=== PATIENT | female | born 1950 | race Hispanic/Latino ===

== ENCOUNTER 2018-01-18 13:49 | Emergency (ER) | payer MEDICARE, OTHER ==
[2018-01-18 14:27] LABS: Absolute Lymphocytes (CBC) 0.6 K/uL (0.7-4.9); Absolute Monocytes 0.3 K/uL (0.1-1.3); Absolute Neutrophil 8.3 K/uL (1.8-8.0); Basophils % 0.2 % (0-1.3); Eosinophils % 0.4 % (0-4.4); Hematocrit 40.2 % (36.0-45.0); Lymphocytes % 6.3 % (15.3-44.8); MCH 31.8 pg (27.0-35.0); MCV 94.2 fL (80-100); MPV 7.8 fL (7.6-11.3); Monocytes % 2.9 % (3.3-12.3); RBC Red Blood Cell Count 4.27 M/uL (3.86-4.86)
[2018-01-18 14:47] LABS: Protime INR 0.97
[2018-01-18 15:00] LABS: ALT/SGPT 17 U/L (12-78); AST/SGOT 20 U/L (15-37); Albumin 3.7 g/dL (3.4-5.0); Alkaline Phosphatase 125 U/L (45-117); BUN Blood Urea Nitrogen 31 mg/dL (7-18); Bicarbonate 27 mmol/L (21-32); Bilirubin Direct 0.2 mg/dL (0-0.2); Bilirubin Total 0.7 mg/dL (0.2-1.0); CKMB Creatine Kinase MB < 1.0 ng/mL (0.3-3.6); Creatine Phosphokinase 76 U/L (26-192); Glucose Level 108 mg/dL (74-106); Magnesium 1.8 mg/dL (1.8-2.4); NT PRO-BNP 101 pg/mL (<125); Potassium 3.7 mmol/L (3.5-5.1); Protein, Total 7.6 g/dL (6.4-8.2); Sodium Level 135 mmol/L (136-145)
--- NOTE | 2018-01-18 15:03 | RAD REPORT ---
EXAM DESCRIPTION: RAD - Chest Single View - 01/18/2018 2:51 pm CLINICAL HISTORY: CHEST PAIN<Reason For Exam>CHEST PAIN COMPARISON: Chest Single View dated 08/01/2017; Chest Single View dated 10/08/2015; CHEST SINGLE VIEW dated 01/17/2015; CHEST SINGLE VIEW dated 09/13/2014<Comparisons TECHNIQUE: AP portable chest image was obtained 1442 hours . FINDINGS: Lungs are clear. Lung markings are similar to comparison. Heart size is upper normal and s table. No vascular engorgement. No measurable pleural effusion and no pneumothorax. No gross bony abn ormality seen. No acute aortic findings suspected. IMPRESSION: No acute cardiopulmonary process. No significant interval change.
[2018-01-18] MEDS ORDERED: NA CHLORIDE 0.9% 1,000 ML ONE ×2 (15:20→17:23)
[2018-01-18 16:43] LABS: Urine Blood 1+ (NEG); Urine Glucose NEGATIVE (NEG); Urine Protein NEGATIVE (NEG)
[2018-01-18] MEDS ORDERED: ONDANSETRON 4 MG/2 ML VIAL ONE (17:31)
--- NOTE | 2018-01-18 18:08 | EDPHYS ---
Physician Documentation [facility] Name: Guillermina Bowling Age: 67 yrs Sex: Female : 1950 Arrival Date: 01/18/2018 Time: 13:51 Bed 17 Private MD: Man Hylton E ED Physician Rick Diaz HPI: 01/18 15:00 This 67 yrs old Female presents to ER via Ambulatory with complaints of Chest pm1 Pain > 30 y/o. 15:00 The patient or guardian reports chest pain that is located primarily in the mid-sternal pm1 area. Onset: 2 day(s) ago. The pain does not radiate. Associated signs and symptoms: Pertinent positives: nausea, Pertinent negatives: abdominal pain, cough, diaphoresis, dizziness, headache, palpitations, shortness of breath, vomiting. The chest pain is described as sharp. Duration: The patient or guardian reports multiple episodes, the episodes last approximately 1 second(s). Modifying factors: The symptoms are alleviated by nothing. the symptoms are aggravated by nothing. Severity of pain: in the emergency department the pain has resolved. The patient has experienced similar episodes in the past, a few times. The patient has not recently seen a physician. Patient has not been eating or drinking well for the past two days. Historical: - Allergies: 14:37 No Known Allergies; iw - Home Meds: 14:01 B Complex Oral daily [Active]; Humira Pen 40 mg/0.8 mL subcutaneous pnkt Q 2 WEEKS dm5 [Active]; Iron CR Oral daily [Active]; lisinopril 20 mg Oral tab 1 tab once daily [Active]; metoprolol tartrate 50 mg Oral tab 1 tab 2 times per day [Active]; Pentasa 500 mg Oral cpER 3 caps twice a day [Active]; Vitamin D Oral daily [Active]; Zyrtec 10 mg Oral tab 1 tab once daily [Active]; - PMHx: 14:01 Anemia; Crohn's; Fibromyalgia; Hypertension; Myocardial infarction; Rheumatoid dm5 Arthritis; - PSHx: 14:01 Cholecystectomy; ; Left herson socket; Hysterectomy; Bowel resection; dm5 - Immunization history:: Adult Immunizations up to date. - Social history:: Smoking status: Patient/guardian denies using tobacco. - Ebola Screening: : No symptoms or risks identified at this time. ROS: 15:00 Constitutional: Negative for fever, chills, and weight loss, Eyes: Negative for injury, pm1 pain, redness, and discharge, ENT: Negative for injury, pain, and discharge, Neck: Negative for injury, pain, and swelling, Respiratory: Negative for shortness of breath, cough, wheezing, and pleuritic chest pain, Back: Negative for injury and pain, : Negative for injury, bleeding, discharge, and swelling, MS/Extremity: Negative for injury and deformity, Skin: Negative for injury, rash, and discoloration, Neuro: Negative for headache, weakness, numbness, tingling, and seizure. 15:00 Cardiovascular: Positive for chest pain, Negative for edema, orthopnea, palpitations. 15:00 Abdomen/GI: Positive for nausea, Negative for abdominal pain, vomiting, diarrhea. Exam: 15:00 Constitutional: This is a well developed, well nourished patient who is awake, alert, pm1 and in no acute distress. Head/Face: Normocephalic, atraumatic. Eyes: Pupils equal round and reactive to light, extra-ocular motions intact. Lids and lashes normal. Conjunctiva and sclera are non-icteric and not injected. Cornea within normal limits. Periorbital areas with no swelling, redness, or edema. ENT: Nares patent. No nasal discharge, no septal abnormalities noted. Tympanic membranes are normal and external auditory canals are clear. Oropharynx with no redness, swelling, or masses, exudates, or evidence of obstruction, uvula midline. Mucous membranes moist. Neck: Trachea midline, no thyromegaly or masses palpated, and no cervical lymphadenopathy. Supple, full range of motion without nuchal rigidity, or vertebral point tenderness. No Meningismus. Chest/axilla: Normal chest wall appearance and motion. Nontender with no deformity. No lesions are appreciated. Cardiovascular: Regular rate and rhythm with a normal S1 and S2. No gallops, murmurs, or rubs. Normal PMI, no JVD. No pulse deficits. Respiratory: Lungs have equal breath sounds bilaterally, clear to auscultation and percussion. No rales, rhonchi or wheezes noted. No increased work of breathing, no retractions or nasal flaring. Abdomen/GI: Soft, non-tender, with normal bowel sounds. No distension or tympany. No guarding or rebound. No evidence of tenderness throughout. Back: No spinal tenderness. No costovertebral tenderness. Full range of motion. Skin: Warm, dry with normal turgor. Normal color with no rashes, no lesions, and no evidence of cellulitis. MS/ Extremity: Pulses equal, no cyanosis. Neurovascular intact. Full, normal range of motion. 15:00 Neuro: Orientation: is normal, Motor: is normal, moves all fours. Vital Signs: 14:06 BP 117 / 89; Pulse 78; Resp 16; Temp 98.3(O); Pulse Ox 94% on R/A; Pain 5/10; em1 15:13 BP 92 / 59; Pulse 71; Resp 16; Pulse Ox 98% on R/A; Pain 0/10; iw 16:03 BP 103 / 66; Pulse 76; Resp 16; Pulse Ox 100% on R/A; iw 16:34 BP 105 / 62; Pulse 72; Resp 16; Pulse Ox 100% on R/A; Pain 0/10; iw 17:30 BP 99 / 63; Pulse 72; Resp 16; Pulse Ox 98% on R/A; ph 18:50 BP 97 / 56 LA Supine; Pulse 75; ph 18:50 BP 97 / 62 RA Supine; Pulse 75; ph 19:05 BP 103 / 65 Supine; Pulse 74; lp1 19:10 BP 103 / 63 Sitting; Pulse 76; lp1 19:15 BP 108 / 84 Standing; Pulse 81; lp1 MDM: 14:09 Patient medically screened. pm1 18:06 Data reviewed: vital signs. Data interpreted: Pulse oximetry: on room air is 100 %. pm1 Interpretation: normal. Counseling: I had a detailed discussion with the patient and/or guardian regarding: the historical points, exam findings, and any diagnostic results supporting the discharge/admit diagnosis, lab results, radiology results, the need for outpatient follow up, to return to the emergency department if symptoms worsen or persist or if there are any questions or concerns that arise at home. 19:15 ED course: Patient feels better after infusion of 2 L NS. Orthostatic blood pressures pm1 taken and she is not orthostatic. Instructed patient to continue rehydration at home. 01/18 14:01 Order name: Basic Metabolic Panel; Complete Time: 15:00 pm1 29 14:01 Order name: CBC with Diff; Complete Time: 14:47 pm01/18 14:01 Order name: Ckmb; Complete Time: 15:00 pm01/18 14:01 Order name: CPK; Complete Time: 15:00 pm01/18 14:01 Order name: LFT's; Complete Time: 15:00 pm01/18 14:01 Order name: Magnesium; Complete Time: 15:00 pm01/18 14:01 Order name: NT PRO-BNP; Complete Time: 15:00 pm01/18 14:01 Order name: PT-INR; Complete Time: 14:58 pm01/18 14:01 Order name: Ptt, Activated; Complete Time: 14:58 pm01/18 14:01 Order name: Troponin (emerg Dept Use Only); Complete Time: 16:10 pm01/18 14:01 Order name: XRAY Chest (1 view); Complete Time: 15:05 pm01/18 16:39 Order name: Urine Dipstick--Ancillary (enter results); Complete Time: 16:49 bd 01/18 14:01 Order name: EKG; Complete Time: 14:02 pm01/18 14:01 Order name: Cardiac monitoring; Complete Time: 14:19 pm01/18 14:01 Order name: EKG - Nurse/Tech; Complete Time: 14:19 pm01/18 14:01 Order name: IV Saline Lock; Complete Time: 14:19 pm01/18 14:01 Order name: Labs collected and sent; Complete Time: 14:19 pm01/18 14:01 Order name: O2 Per Protocol; Complete Time: 14:19 pm01/18 14:01 Order name: O2 Sat Monitoring; Complete Time: 14:19 pm01/18 14:01 Order name: Urine Dipstick-Ancillary (obtain specimen); Complete Time: 16:23 pm1 Administered Medications: 15:29 Drug: NS 0.9% 1000 ml Route: IV; Rate: 1000 ml; Site: right antecubital; iw 16:30 Follow up: IV Status: Completed infusion iw 15:38 Not Given (Patient Refused): Zofran 4 mg IVP once; over 2 minutes iw 17:29 Drug: NS 0.9% 1000 ml Route: IV; Rate: 1000 ml; Site: right antecubital; iw 17:30 Drug: Zofran 4 mg Route: IVP; Site: right antecubital; iw 17:31 Follow up: Response: No adverse reaction iw Disposition: 01/19 08:09 Co-signature as Attending Physician, Rick Diaz MD. rn Disposition: 01/18/18 18:07 Discharged to Home. Impression: Chest pain, unspecified, Dehydration. - Condition is Stable. - Discharge Instructions: Nonspecific Chest Pain, Dehydration, Adult, Rehydration, Adult. - Prescriptions for Zofran 4 mg Oral Tablet - take 1 tablet by ORAL route every 12 hours As needed; 20 tablet. - Medication Reconciliation Form, Thank You Letter, Antibiotic Education, Prescription Opioid Use form. - Follow up: Emergency Department; When: As needed; Reason: Worsening of condition. Follow up: Private Physician; When: 2 - 3 days; Reason: Recheck today's complaints, Continuance of care, Re-evaluation by your physician. - Problem is new. - Symptoms have improved. Signatures: Dispatcher [employer] EDMandy Broderick RN RN dm5 Latoya Love RN RN iw Nieto, Roman, MD MD rn Smirch, Shelby, RN RN ss Manda Noriega RN RN lp1 Diego Sullivan NP LANDSCAPE PHOTOGRAPHER pm1 Corrections: (The following items were deleted from the chart) 01/18 19:26 18:07 01/18/2018 18:07 Discharged to Home. Impression: Chest pain, unspecified; ss Dehydration. Condition is Stable. Forms are Medication Reconciliation Form, Thank You Letter, Antibiotic Education, Prescription Opioid Use. Follow up: Emergency Department; When: As needed; Reason: Worsening of condition. Follow up: Private Physician; When: 2 - 3 days; Reason: Recheck today's complaints, Continuance of care, Re-evaluation by your physician. Problem is new. Symptoms have improved. pm1
--- NOTE | 2018-01-18 18:08 | ER ---
Nurse's Notes [facility] Name: Guillermina Bowling Age: 67 yrs Sex: Female : 1950 Arrival Date: 01/18/2018 Time: 13:51 Bed 17 Private MD: Man Hylton E Diagnosis: Chest pain, unspecified;Dehydration Presentation: 01/18 13:59 Presenting complaint: Patient states: woke up this morning not feeling well around dm5 1000. Pt states she has been nauseated and vomiting and was sweating. Pt states she has had chest pain for 2 days but worse today. has had similar pain in the past. Transition of care: patient was not received from another setting of care. Onset of symptoms was January 18, 2018. Risk Assessment: Do you want to hurt yourself or someone else? Patient reports no desire to harm self or others. Initial Sepsis Screen: Does the patient meet any 2 criteria? No. Patient's initial sepsis screen is negative. Does the patient have a suspected source of infection? No. Patient's initial sepsis screen is negative. Care prior to arrival: None. 13:59 Method Of Arrival: Ambulatory dm5 13:59 Acuity: JASWINDER 3 dm5 Triage Assessment: 14:01 General: Appears in no apparent distress. uncomfortable, Behavior is calm, cooperative. dm5 Pain: Complains of pain in chest. Neuro: Level of Consciousness is awake, alert, obeys commands, Oriented to person, place, time, situation. Cardiovascular: Reports chest pain, diaphoresis, nausea, vomiting, Capillary refill < 3 seconds Patient's skin is warm and dry. Respiratory: Airway is patent Respiratory effort is even, unlabored, relaxed, Respiratory pattern is regular, symmetrical. GI: Reports nausea, vomiting. Derm: Skin is pink, warm \T\ dry. Historical: - Allergies: 14:37 No Known Allergies; iw - Home Meds: 14:01 B Complex Oral daily [Active]; Humira Pen 40 mg/0.8 mL subcutaneous pnkt Q 2 WEEKS dm5 [Active]; Iron CR Oral daily [Active]; lisinopril 20 mg Oral tab 1 tab once daily [Active]; metoprolol tartrate 50 mg Oral tab 1 tab 2 times per day [Active]; Pentasa 500 mg Oral cpER 3 caps twice a day [Active]; Vitamin D Oral daily [Active]; Zyrtec 10 mg Oral tab 1 tab once daily [Active]; - PMHx: 14:01 Anemia; Crohn's; Fibromyalgia; Hypertension; Myocardial infarction; Rheumatoid dm5 Arthritis; - PSHx: 14:01 Cholecystectomy; ; Left herson socket; Hysterectomy; Bowel resection; dm5 - Immunization history:: Adult Immunizations up to date. - Social history:: Smoking status: Patient/guardian denies using tobacco. - Ebola Screening: : No symptoms or risks identified at this time. Screenin:14 Abuse screen: Denies threats or abuse. Denies injuries from another. Nutritional iw screening: No deficits noted. Tuberculosis screening: No symptoms or risk factors identified. Fall Risk IV access (20 points). Assessment: 15:13 Reassessment: Patient appears in no apparent distress at this time. Patient and/or iw family updated on plan of care and expected duration. Pain level reassessed. Patient is alert, oriented x 3, equal unlabored respirations, skin warm/dry/pink. Patient denies pain at this time. Patient states feeling better. 16:34 Reassessment: Patient appears in no apparent distress at this time. Patient and/or iw family updated on plan of care and expected duration. Pain level reassessed. Patient is alert, oriented x 3, equal unlabored respirations, skin warm/dry/pink. pt denies pain at this time but did have one episode of chest tightness and nausea that lasted a few seconds, has completely resolved now. 17:32 Reassessment: Patient appears in no apparent distress at this time. Patient and/or iw family updated on plan of care and expected duration. Pain level reassessed. Patient is alert, oriented x 3, equal unlabored respirations, skin warm/dry/pink. Pain: Denies pain. Pain does not radiate. Pain began. 18:30 Reassessment: Patient appears in no apparent distress at this time. Patient and/or ph family updated on plan of care and expected duration. Pain level reassessed. Patient is alert, oriented x 3, equal unlabored respirations, skin warm/dry/pink. Pt ambulated to restroom, reports dizziness upon standing, BP remains low (90s/50s), d/c pending improvement in BP. Vital Signs: 14:06 BP 117 / 89; Pulse 78; Resp 16; Temp 98.3(O); Pulse Ox 94% on R/A; Pain 5/10; em1 15:13 BP 92 / 59; Pulse 71; Resp 16; Pulse Ox 98% on R/A; Pain 0/10; iw 16:03 BP 103 / 66; Pulse 76; Resp 16; Pulse Ox 100% on R/A; iw 16:34 BP 105 / 62; Pulse 72; Resp 16; Pulse Ox 100% on R/A; Pain 0/10; iw 17:30 BP 99 / 63; Pulse 72; Resp 16; Pulse Ox 98% on R/A; ph 18:50 BP 97 / 56 LA Supine; Pulse 75; ph 18:50 BP 97 / 62 RA Supine; Pulse 75; ph 19:05 BP 103 / 65 Supine; Pulse 74; lp1 19:10 BP 103 / 63 Sitting; Pulse 76; lp1 19:15 BP 108 / 84 Standing; Pulse 81; lp1 ED Course: 13:51 Patient arrived in ED. sb2 13:51 Man Hylton MD is Private Physician. sb2 13:59 Mandy Salas, RN is Primary Nurse. dm5 14:00 Triage completed. dm5 14:01 Diego Sullivan NP is PHCP. pm1 14:01 Rick Diaz MD is Attending Physician. pm1 14:01 Arm band placed on right wrist. EKG done per protocol. dm5 14:30 EKG done, by biodiesel production technician. reviewed by Diego Sullivan NP. dt2 14:39 Primary Nurse role handed off by Mandy Salas, RN iw 14:39 Latoya Love, MARLON is Primary Nurse. iw 14:47 X-ray completed. Portable x-ray completed in exam room. Patient tolerated procedure jb2 well. 14:51 XRAY Chest (1 view) In Process Unspecified. EDMS 16:34 No provider procedures requiring assistance completed. Patient maintains SpO2 iw saturation greater than 95% on room air. 19:10 Patient has correct armband on for positive identification. tar chaser on. Pulse lp1 ox on. NIBP on. 19:26 IV discontinued, intact, bleeding controlled, No redness/swelling at site. Pressure ss dressing applied. Administered Medications: 15:29 Drug: NS 0.9% 1000 ml Route: IV; Rate: 1000 ml; Site: right antecubital; iw 16:30 Follow up: IV Status: Completed infusion iw 15:38 Not Given (Patient Refused): Zofran 4 mg IVP once; over 2 minutes iw 17:29 Drug: NS 0.9% 1000 ml Route: IV; Rate: 1000 ml; Site: right antecubital; iw 17:30 Drug: Zofran 4 mg Route: IVP; Site: right antecubital; iw 17:31 Follow up: Response: No adverse reaction iw Outcome: 18:07 Discharge ordered by MD. pm1 19:26 Discharged to home ambulatory. 19:26 Condition: good 19:26 Discharge instructions given to patient, Instructed on discharge instructions, follow up and referral plans. medication usage, Demonstrated understanding of instructions, follow-up care, medications, Prescriptions given X 1. 19:26 Patient left the ED. ss Signatures: Dispatcher [employer] EDMS Mandy Salas RN RN dm5 Yuan Boles jb2 Latoya Love RN RN Yeyo Strickland em1 Erika Gillette RN RN Manda Noriega RN RN lp1 Linda Razo RN RN ph Marinas, Patrick, TAMMI COOK TORTILLA pm1 Hannah Klein sb2 Anna Sorenson dt2
[2018-01-18 20:39] VITALS: TEMP 98.3
[2018-01-18 20:44] VITALS: O2SAT 98
[2018-01-18 20:48] VITALS: BP 108/84
--- NOTE | 2018-01-19 16:31 | EKG ---
Test Date: 2018-01-18 Test Time: 13:57:58 Business Operations Analyst: VADIM-Santiago MEASUREMENT RESULTS: Intervals: Rate: 81 MS: 150 QRSD: 76 QT: 382 QTc: 443 [place]: P: 69 MS: 150 QRS: 8 T: 29 INTERPRETIVE STATEMENTS: Normal sinus rhythm Normal ECG Compared to ECG 08/01/2017 20:10:37 Left ventricular hypertrophy no longer present Electronically Signed On 01-19-18 16:26:30 CDT by Pascual Cueto
== END 2018-01-18 19:26 | disposition home or self-care (01) ==
LOC: ER 13:49
DX: R07.89 Other chest pain (principal); E86.0 Dehydration; D64.9 Anemia, unspecified; I10 Essential (primary) hypertension
CPT/HCPCS: 36415; 71045; 80048; 80076; 81003; 82550; 82553; 83735; 83880; 84484; 85025; 85610; 85730; 93005; 96361; 96374; 99285; J2405; J7030 ×2

== ENCOUNTER 2018-10-27 08:16 | Emergency (ER) | payer MEDICARE ==
[2018-10-27] MEDS ORDERED: MEPERIDINE HCL 25 MG/0.5 ML ONE (08:41)
[2018-10-27 09:07] LABS: BUN Blood Urea Nitrogen 15 mg/dL (7-18); Bicarbonate 32 mmol/L (21-32); Glucose Level 88 mg/dL (74-106); Potassium 3.8 mmol/L (3.5-5.1); Sodium Level 143 mmol/L (136-145); Troponin (Emerg Dept Use Only) < 0.02 ng/mL (0.0-0.045)
--- NOTE | 2018-10-27 09:14 | RAD REPORT ---
EXAM DESCRIPTION: RAD - Chest Single View - 10/27/2018 8:54 am CLINICAL HISTORY: CHEST PAIN Chest pain. COMPARISON: Chest Single View dated 01/18/2018; Chest Single View dated 08/01/2017; Chest Single View dated 10/08/2015; CHEST SINGLE VIEW dated 01/17/2015 FINDINGS: Portable technique limits examination quality. The lungs are grossly clear. The heart is normal in size. No displaced fractures. IMPRESSION: No acute intrathoracic process suspected.
--- NOTE | 2018-10-27 09:15 | RAD REPORT ---
EXAM DESCRIPTION: RAD - Ribs Left - 10/27/2018 8:54 am CLINICAL HISTORY: Trauma, left-sided rib pain COMPARISON: None. FINDINGS: No displaced rib fracture is evident. No aggressive rib lesion. No underlying pneumothorax, effusion, infiltrate or pulmunary contusion. IMPRESSION: Negative left rib series.
--- NOTE | 2018-10-27 09:24 | ER ---
Nurse's Notes [facility] Name: Guillermina Bowling Age: 67 yrs Sex: Female : 1950 Arrival Date: 10/27/2018 Time: 08:18 Bed 5 Private MD: Diagnosis: Chest contusion Presentation: 10/27 08:18 Presenting complaint: Patient states: "my 19 month old grandson jumped on my chest 2 aa5 days ago and my chest has been hurting since then". Pt c/o pain to left side of chest. 08:18 Transition of care: patient was not received from another setting of care. Onset of aa5 symptoms was October 25, 2018. Risk Assessment: Do you want to hurt yourself or someone else? Patient reports no desire to harm self or others. Initial Sepsis Screen: Does the patient meet any 2 criteria? No. Patient's initial sepsis screen is negative. Does the patient have a suspected source of infection? No. Patient's initial sepsis screen is negative. Care prior to arrival: None. 08:18 Acuity: JASWINDER 3 aa5 08:18 Method Of Arrival: Ambulatory aa5 Triage Assessment: 08:20 General: Appears in no apparent distress. uncomfortable, Behavior is cooperative, bp appropriate for age, anxious. Historical: - Allergies: 08:18 No Known Allergies; aa5 - Home Meds: 08:18 metoprolol tartrate 50 mg Oral tab 1 tab 2 times per day [Active]; lisinopril 20 mg aa5 Oral tab 1 tab once daily [Active]; Pentasa 500 mg Oral cpER 3 caps twice a day [Active]; Tylenol-Codeine #4 300-60 mg Oral tab [Active]; 08:29 B Complex Oral daily [Active]; Humira Pen 40 mg/0.8 mL subcutaneous pnkt Q 2 WEEKS tw2 [Active]; Iron CR Oral daily [Active]; Vitamin D Oral daily [Active]; Zyrtec 10 mg Oral tab 1 tab once daily [Active]; - PMHx: 08:18 Anemia; Crohn's; Fibromyalgia; Hypertension; Myocardial infarction; Rheumatoid aa5 Arthritis; - PSHx: 08:18 Cholecystectomy; ; Hysterectomy; Colon resection; Left elbow; aa5 08:29 Left herson socket; Bowel resection; tw2 - Immunization history:: Flu vaccine is not up to date. - Social history:: Smoking status: Patient/guardian denies using tobacco. - Ebola Screening: : No symptoms or risks identified at this time. - Family history:: not pertinent. - Hospitalizations: : No recent hospitalization is reported. Screenin:21 Abuse screen: Denies threats or abuse. Denies injuries from another. Nutritional bp screening: No deficits noted. Tuberculosis screening: No symptoms or risk factors identified. Fall Risk None identified. Assessment: 08:19 General: Appears in no apparent distress. uncomfortable, Behavior is cooperative, bp appropriate for age, anxious, 67YO HF 2 DAYS S/P 19 MONTH GRANDCHILD JUMPING ON HER CHEST. Pain: Complains of pain in chest. Neuro: Level of Consciousness is awake, alert, obeys commands, Oriented to person, place, time, situation, Appropriate for age. Cardiovascular: Rhythm is sinus rhythm. Respiratory: Airway is patent Respiratory effort is even, unlabored, Respiratory pattern is regular, symmetrical. GI: No signs and/or symptoms were reported involving the gastrointestinal system. : No signs and/or symptoms were reported regarding the genitourinary system. EENT: No deficits noted. Derm: No deficits noted. Musculoskeletal: Circulation, motion, and sensation intact. Range of motion: intact in all extremities. 09:26 Reassessment: Patient appears in no apparent distress at this time. Patient and/or tw2 family updated on plan of care and expected duration. Pain level reassessed. Patient is alert, oriented x 3, equal unlabored respirations, skin warm/dry/pink. Patient states feeling better. Patient states symptoms have improved. Vital Signs: 08:27 BP 144 / 118; Pulse 89; Resp 16; Temp 98.4; Pulse Ox 97% ; Weight 66.68 kg; Height 5 bp ft. 4 in. (162.56 cm); 08:30 BP 114 / 87; Pulse 82; Resp 24; Pulse Ox 97% ; bp 09:27 BP 118 / 78; Pulse 73; Resp 17; Pulse Ox 96% on R/A; tw2 08:27 Body Mass Index 25.23 (66.68 kg, 162.56 cm) bp ED Course: 08:18 Patient arrived in ED. rn 08:18 Scar Moore RN is Primary Nurse. bp 08:19 Rick Diaz MD is Attending Physician. rn 08:19 Arm band placed on Patient placed in an exam room, on a stretcher. aa5 08:20 Triage completed. aa5 08:21 Patient has correct armband on for positive identification. Bed in low position. Call bp light in reach. Side rails up X2. 08:32 Inserted saline lock: 18 gauge in right antecubital area, using aseptic technique. bp Blood collected. 08:40 EKG done, by lead radiologic technologist. reviewed by Rick Diaz MD. at1 08:54 X-ray completed. Patient tolerated procedure well. Patient moved back from radiology. jb2 08:56 XRAY Chest (1 view) In Process Unspecified. EDMS 08:56 XRAY Ribs LEFT In Process Unspecified. EDMS 09:32 No provider procedures requiring assistance completed. IV discontinued, intact, bp bleeding controlled, No redness/swelling at site. Pressure dressing applied. Administered Medications: 08:32 Drug: Demerol 25 mg Route: IVP; Site: right antecubital; bp 09:27 Follow up: Response: No adverse reaction; Pain is decreased tw2 09:34 Follow up: Response: Pain is decreased bp Outcome: 09:23 Discharge ordered by MD. rn 09:33 Discharged to home ambulatory, with family. bp 09:33 Condition: stable 09:33 Discharge instructions given to patient, Instructed on discharge instructions, follow up and referral plans. Demonstrated understanding of instructions, follow-up care. 09:34 Patient left the ED. bp Signatures: Dispatcher [employer] EDNM Yuan Boles jb2 Rick Diaz MD MD rn Calderon, Audri RN RN aa5 Earlene Osborn, distillery supervisor EKG Tat1 Gail Sainz RN RN tw2 Scar Moore, RN RN bp Corrections: (The following items were deleted from the chart) 08:33 08:30 BP 114 / 87; Pulse 82bpm; tw2 bp
--- NOTE | 2018-10-27 09:24 | EDPHYS ---
Physician Documentation [facility] Name: Guillermina Bowling Age: 67 yrs Sex: Female : 1950 Arrival Date: 10/27/2018 Time: 08:18 Bed 5 Private MD: ED Physician Rick Diaz HPI: 10/27 08:23 This 67 yrs old Female presents to ER via Ambulatory with complaints of chest rn pain/rib pain. 08:23 The patient or guardian reports chest pain that is located primarily in the anterior rn chest wall. Onset: The symptoms/episode began/occurred 2 day(s) ago. The pain does not radiate. Associated signs and symptoms: The patient has no apparent associated signs or symptoms, Pertinent negatives: abdominal pain, cough, diaphoresis, palpitations, shortness of breath, syncope, vomiting. The chest pain is described as sharp, stabbing. Duration: The patient or guardian reports multiple episodes, that are intermittent. Modifying factors: The symptoms are alleviated by nothing. the symptoms are aggravated by deep breath, palpation of area. Severity of pain: At its worst the pain was moderate in the emergency department the pain is unchanged. The patient has not experienced similar symptoms in the past. The patient has not recently seen a physician. Reports left anterior chest pain, non-radiating, began after grandson jumped on her chest 2 days ago, hurts to touch area and feels like it is swollen. Reports not improving with her tylenol #4, so son urged her to come in. No fever/cough/hemoptysis. . Historical: - Allergies: 08:18 No Known Allergies; aa5 - Home Meds: 08:18 metoprolol tartrate 50 mg Oral tab 1 tab 2 times per day [Active]; lisinopril 20 mg aa5 Oral tab 1 tab once daily [Active]; Pentasa 500 mg Oral cpER 3 caps twice a day [Active]; Tylenol-Codeine #4 300-60 mg Oral tab [Active]; 08:29 B Complex Oral daily [Active]; Humira Pen 40 mg/0.8 mL subcutaneous pnkt Q 2 WEEKS tw2 [Active]; Iron CR Oral daily [Active]; Vitamin D Oral daily [Active]; Zyrtec 10 mg Oral tab 1 tab once daily [Active]; - PMHx: 08:18 Anemia; Crohn's; Fibromyalgia; Hypertension; Myocardial infarction; Rheumatoid aa5 Arthritis; - PSHx: 08:18 Cholecystectomy; ; Hysterectomy; Colon resection; Left elbow; aa5 08:29 Left herson socket; Bowel resection; tw2 - Immunization history:: Flu vaccine is not up to date. - Social history:: Smoking status: Patient/guardian denies using tobacco. - Ebola Screening: : No symptoms or risks identified at this time. - Family history:: not pertinent. - Hospitalizations: : No recent hospitalization is reported. ROS: 08:23 Constitutional: Negative for fever, chills, and weight loss, Eyes: Negative for injury, rn pain, redness, and discharge, Neck: Negative for injury, pain, and swelling, Cardiovascular: Negative for palpitations, and edema, Respiratory: Negative for shortness of breath, cough, wheezing Abdomen/GI: Negative for abdominal pain, nausea, vomiting, diarrhea, and constipation, MS/Extremity: Negative for injury and deformity, Skin: Negative for injury, rash, and discoloration, Neuro: Negative for headache, weakness, numbness, tingling, and seizure. Exam: 08:23 Constitutional: This is a well developed, well nourished patient who is awake, alert, rn holding left chest Head/Face: Normocephalic, atraumatic. ENT: MMM Chest/axilla: Normal chest wall appearance and motion. + mild tenderness left anterior/lateral chest wall, no crepitus Cardiovascular: Regular rate and rhythm. No pulse deficits. Respiratory: Lungs have equal breath sounds bilaterally, clear to auscultation. Abdomen/GI: soft, non-tender Back: No posterior thoracic pain or tenderness MS/ Extremity: Pulses equal, no cyanosis. Neurovascular intact. Full, normal range of motion. Equal circumference. Vital Signs: 08:27 BP 144 / 118; Pulse 89; Resp 16; Temp 98.4; Pulse Ox 97% ; Weight 66.68 kg; Height 5 bp ft. 4 in. (162.56 cm); 08:30 BP 114 / 87; Pulse 82; Resp 24; Pulse Ox 97% ; bp 09:27 BP 118 / 78; Pulse 73; Resp 17; Pulse Ox 96% on R/A; tw2 08:27 Body Mass Index 25.23 (66.68 kg, 162.56 cm) bp MDM: 08:19 Patient medically screened. rn 09:21 Differential diagnosis: Blunt Chest Trauma Chest Wall Contusion Chest Wall Injury Rib rn Fracture. Data reviewed: vital signs, nurses notes, lab test result(s), EKG, radiologic studies, plain films, and as a result, I will discharge patient. Counseling: I had a detailed discussion with the patient and/or guardian regarding: the historical points, exam findings, and any diagnostic results supporting the discharge/admit diagnosis, lab results, radiology results, the need for outpatient follow up, to return to the emergency department if symptoms worsen or persist or if there are any questions or concerns that arise at home. Response to treatment: the patient's symptoms have mildly improved after treatment, and as a result, I will discharge patient. Special discussion: I discussed with the patient/guardian in detail that at this point there is no indication for admission to the hospital. It is understood, however, that if the symptoms persist or worsen the patient needs to return immediately for re-evaluation. ED course: Patient with negative plain film evaluation of traumatic chest pain, ecg and trop neg and pain seems more traumatic, most likely rib contusion. . 10/27 08:23 Order name: BMP; Complete Time: 09:15 rn 10/27 08:23 Order name: Troponin (emerg Dept Use Only); Complete Time: 09:15 rn 10/27 08:23 Order name: XRAY Chest (1 view); Complete Time: 09:15 rn 10/27 08:23 Order name: XRAY Ribs LEFT; Complete Time: 09:15 rn 10/27 08:23 Order name: EKG; Complete Time: 08:25 rn 10/27 08:23 Order name: EKG - Nurse/Tech; Complete Time: 08:30 rn 10/27 08:23 Order name: IV Start; Complete Time: 08:32 rn Administered Medications: 08:32 Drug: Demerol 25 mg Route: IVP; Site: right antecubital; bp 09:27 Follow up: Response: No adverse reaction; Pain is decreased tw2 09:34 Follow up: Response: Pain is decreased bp Disposition: 10/27/18 09:23 Discharged to Home. Impression: Chest contusion. - Condition is Stable. - Discharge Instructions: Rib Contusion. - Medication Reconciliation Form, Thank You Letter, Antibiotic Education, Prescription Opioid Use form. - Follow up: Private Physician; When: As needed; Reason: Recheck today's complaints, Re-evaluation by your physician. - Problem is new. - Symptoms have improved. Signatures: Dispatcher [employer] EDMS Rick Diaz MD MD rn Calderon, Audri, RN RN aa5 Gail Sainz RN RN tw2 Scar Moore RN RN bp Corrections: (The following items were deleted from the chart) 09:34 09:23 10/27/2018 09:23 Discharged to Home. Impression: Chest contusion. Condition is bp Stable. Forms are Medication Reconciliation Form, Thank You Letter, Antibiotic Education, Prescription Opioid Use. Follow up: Private Physician; When: As needed; Reason: Recheck today's complaints, Re-evaluation by your physician. Problem is new. Symptoms have improved. rn
[2018-10-27 11:02] VITALS: TEMP 98.4
[2018-10-27 11:04] VITALS: BP 118/78; O2SAT 96
--- NOTE | 2018-10-28 09:06 | EKG ---
Test Date: 2018-10-27 Test Time: 08:30:45 Scalemaker: VERÓNICA MEASUREMENT RESULTS: Intervals: Rate: 81 SD: 154 QRSD: 84 QT: 384 QTc: 446 Mcqueeney: P: 69 SD: 154 QRS: -2 T: 28 INTERPRETIVE STATEMENTS: Normal sinus rhythm Normal ECG Compared to ECG 01/18/2018 13:57:58 No significant changes Electronically Signed On 10-28-18 09:01:27 CDT by Pascual Cueto
== END 2018-10-27 09:34 | disposition home or self-care (01) ==
LOC: ER 08:16
DX: S20.219A Contusion of unspecified front wall of thorax, initial encounter (principal); X58.XXXA Exposure to other specified factors, initial encounter; Y93.83 Activity, rough housing and horseplay; D64.9 Anemia, unspecified; K50.90 Crohn's disease, unspecified, without complications; I10 Essential (primary) hypertension; I25.2 Old myocardial infarction; M06.9 Rheumatoid arthritis, unspecified
CPT/HCPCS: 93005; 80048; 36415; 84484; 71045; 71100; 96374; 99284; J2175

== ENCOUNTER 2020-02-17 23:34 | Emergency (ER) | payer MEDICARE ==
--- OUTSIDE RECORDS SUMMARY | 2020-02-17 23:36 | XMS REPORT | Continuity of Care Document ---
:1950 Author Organization [facility] t Address [address] [place] [address] [address] [place] [address] Care Team Providers Name Role Phone Radiology Attending Clinician Unavailable Problems This patient has no known problems. Allergies, Adverse Reactions, Alerts This patient has no known allergies or adverse reactions. Medications This patient has no known medications. Procedures This patient has no known procedures. Encounters Start End Encounter Admission Attending Care Care Encounter Source Date/Time Date/Time Type Type Clinicians Facility Department ID 2019-07-19 2019-07-19 [facility] Radiology [facility] [id number] 13:10:00 23:59:00 Encounter Griselda [id number] [place] [id number] [place] [id number] Results This patient has no known results.
[2020-02-18 00:35] LABS: Absolute Lymphocytes (CBC) 1.6 K/uL (0.7-4.9); Basophils % 0.3 % (0-1.3); Hematocrit 34.8 % (36.0-45.0); Lymphocytes % 24.7 % (15.3-44.8); MPV 7.4 fL (7.6-11.3); RBC Red Blood Cell Count 3.55 M/uL (3.86-4.86)
[2020-02-18 00:47] LABS: ALT/SGPT 31 U/L (12-78); AST/SGOT 19 U/L (15-37); Albumin 3.6 g/dL (3.4-5.0); Alkaline Phosphatase 111 U/L (45-117); BUN Blood Urea Nitrogen 20 mg/dL (7-18); Bicarbonate 25 mmol/L (21-32); Bilirubin Direct < 0.1 mg/dL (0-0.2); Bilirubin Total 0.3 mg/dL (0.2-1.0); Glucose Level 110 mg/dL (74-106); Lipase 66 U/L (73-393); Potassium 3.9 mmol/L (3.5-5.1); Sodium Level 138 mmol/L (136-145)
[2020-02-18] MEDS ORDERED: DIPHENOX/ATROP SULF 1 TAB PO ONE (00:57)
[2020-02-18] MEDS ORDERED: NA CHLORIDE 0.9% 1,000 ML ONE ×2 (00:58→02:16)
[2020-02-18] MEDS ORDERED: MORPHINE 4 MG/ML SYR ONE (00:58)
[2020-02-18] MEDS ORDERED: ONDANSETRON 4 MG/2 ML VIAL ONE ×2 (00:58→02:16)
--- NOTE | 2020-02-18 02:00 | ER ---
Nurse's Notes [facility] Name: Guillermina Bowling Age: 69 yrs Sex: Female : 1950 Arrival Date: 02/17/2020 Time: 23:37 Bed 4 Private MD: Diagnosis: Gastroenteritis. Headache. Dizziness Presentation: 02/16 23:55 Chief complaint: Patient states: I STARTED DIARRHEA AT 2PM TODAY, MORE THAN FIVE TIMES, rv WATERY, WITH NAUSEA AND VOMITING. THEN HEADACHE AND DIZZINESS STARTED ABOUT AN HOUR AGO. I WASN'T ABLE TO HOLD ANYTHING DOWN. I'VE BEEN THROWING A LOT. DENIES ABDOMINAL PAIN. Coronavirus screen: At this time, the client does not indicate any symptoms associated with coronavirus-19. Ebola Screen: No symptoms or risks identified at this time. Initial Sepsis Screen: Does the patient meet any 2 criteria? No. Patient's initial sepsis screen is negative. Does the patient have a suspected source of infection? No. Patient's initial sepsis screen is negative. Risk Assessment: Do you want to hurt yourself or someone else? Patient reports no desire to harm self or others. Onset of symptoms was February 17, 2020 at 14:00. 23:55 Method Of Arrival: Ambulatory rv 23:55 Acuity: JASWINDER 3 rv Triage Assessment: 23:58 General: Appears uncomfortable, Behavior is calm, cooperative. Pain: Complains of pain rv in face. EENT: No signs and/or symptoms were reported regarding the EENT system. Neuro: Level of Consciousness is awake, alert, obeys commands, Oriented to person, place, time, situation. Neuro: Reports headache that is the "worst ever". Cardiovascular: Patient's skin is warm and dry. Respiratory: Airway is patent Respiratory effort is even, unlabored. GI: Reports nausea, vomiting. GI: Abdomen is round non-distended, Bowel sounds present X 4 quads. Derm: Skin is intact. Historical: - Allergies: 23:58 No Known Allergies; rv - PMHx: 23:58 Anemia; Crohn's; Fibromyalgia; Hypertension; Myocardial infarction; Rheumatoid rv Arthritis; - PSHx: 23:58 COLON SURGERY; Hysterectomy; rv - Immunization history:: Adult Immunizations up to date. - Social history:: Smoking status: Patient denies any tobacco usage or history of. Screenin/28 00:00 Abuse screen: Denies threats or abuse. Denies injuries from another. Nutritional rv screening: No deficits noted. Tuberculosis screening: No symptoms or risk factors identified. Fall Risk None identified. Assessment: 02:08 Reassessment: PATIENT AMBULATED FROM EXAMINATION ROOM TO THE RESTROOM. DIZZINESS AND rv HEADACHE INCREASED. DR AMADOR AWARE. NEW ORDERS RECEIVED. UPDATED THE FAMILY AND PATIENT ON THE PLAN OF CARE. GIVEN MEDICATIONS ORDERED. GI: Patient currently denies nausea. 03:25 Reassessment: PATIENT AMBULATED WITHOUT DIZZINESS. HEADACHE IS IMPROVING. PATIENT rv STATED FEELING BETTER. VITAL SIGNS STABLE. Neuro: Level of Consciousness is awake, alert, obeys commands, Oriented to person, place, time, situation. GI: Abdomen is round non-distended. Vital Signs: 02/16 23:55 BP 184 / 81; Pulse 73; Resp 17; Temp 98.2; Pulse Ox 100% ; Weight 81.19 kg; Height 5 rv ft. 4 in. (162.56 cm); Pain 10/10; 02/17 01:29 BP 143 / 99; Pulse 66; Resp 12; Pulse Ox 98% on R/A; Pain 5/10; rv 01:30 BP 143 / 99; Pulse 66; Resp 12; Pulse Ox 98% ; rv 02:11 BP 160 / 72; Pulse 63; Resp 16; Pulse Ox 100% on R/A; rv 03:00 BP 147 / 58; Pulse 67; Resp 16; Pulse Ox 100% on R/A; rv 03:24 BP 133 / 73; Pulse 71; Resp 17; Pulse Ox 100% on R/A; rv 02/16 23:55 Body Mass Index 30.72 (81.19 kg, 162.56 cm) rv 02:11 POST AMBULATION rv ED Course: 02/16 23:37 Patient arrived in ED. cl3 23:44 Yasmani Perkins, MARLON is Primary Nurse. rv 23:57 Triage completed. rv 23:57 Inserted saline lock: 20 gauge in left forearm, using aseptic technique. Blood ds4 collected. 02/17 00:00 Arm band placed on right wrist. Patient placed in the treatment room, on a stretcher, rv Patient notified of wait time. 00:00 Patient has correct armband on for positive identification. Placed in gown. Bed in low rv position. Call light in reach. Pulse ox on. NIBP on. 00:28 Lipase Sent. ds4 00:28 Hepatic Function Sent. ds4 00:28 CBC with Diff Sent. ds4 00:28 Basic Metabolic Panel Sent. ds4 00:29 Minh Amador MD is Attending Physician. pkl 00:37 Served as a ship keeper during rectal exam. bb 02:[address] via stretcher. rv 03:40 IV discontinued, intact, bleeding controlled, No redness/swelling at site. Pressure rv dressing applied. Administered Medications: 00:45 Drug: NS 0.9% 1000 ml Route: IV; Rate: 1000 ml; Site: left forearm; rv 01:30 Follow up: IV Status: Completed infusion; IV Intake: 1000ml rv 00:45 Drug: Zofran (Ondansetron) 4 mg Route: IVP; Site: left forearm; rv 01:29 Follow up: Response: No adverse reaction; Marked relief of symptoms; Nausea is decreasedrv 00:45 Drug: LoMOTIL 2 tabs Route: PO; rv 01:28 Follow up: Response: No adverse reaction rv 00:56 Drug: morphine 4 mg {Note: rass 0.} Route: IVP; Site: left forearm; rv 01:29 Follow up: BP 143 / 99; Pulse 66 bpm; Resp 12 bpm; Pulse Ox 98% RA; Pain 5/10 Adult; rv Response: No adverse reaction; Marked relief of symptoms; Pain is decreased; RASS: Alert and Calm (0) 02:07 Drug: Zofran (Ondansetron) 4 mg Route: IVP; Site: left forearm; rv 03:26 Follow up: Response: No adverse reaction; Marked relief of symptoms rv 02:07 Drug: Antivert 50 mg Route: PO; rv 03:26 Follow up: Response: No adverse reaction; Marked relief of symptoms rv 02:08 Drug: NS 0.9% 1000 ml Route: IV; Rate: 1000 ml; Site: left forearm; rv 03:27 Follow up: IV Status: Completed infusion; IV Intake: 1000ml rv 03:00 Drug: morphine 2 mg {Note: RASS 0.} Route: IVP; Site: left forearm; rv 03:28 Follow up: Response: No adverse reaction; Marked relief of symptoms; RASS: Alert and rv Calm (0) Point of Care Testing: Guaiac: 00:38 Stool Guaiac: Negative; Stool Hemoccult Control: Pass; bb Intake: 01:30 IV: 1000ml; Total: 1000ml. rv 03:27 IV: 1000ml; Total: 2000ml. rv Outcome: 01:59 Discharge ordered by . pkl 03:31 Discharge ordered by MD. pkl 03:40 Discharged to home ambulatory, with family. rv 03:40 Condition: improved 03:40 Discharge instructions given to patient, Instructed on discharge instructions, follow up and referral plans. medication usage, Demonstrated understanding of instructions, follow-up care, medications, Prescriptions given X 3. 03:40 Patient left the ED. rv Signatures: Minh Amador MD MD pkSarah Roberto, RN RN Nikolas Johnson ds4 Yasmani Perkins RN RN Shadi hCoe cl3
--- NOTE | 2020-02-18 02:00 | EDPHYS ---
Physician Documentation [facility] Name: Guillermina Bowling Age: 69 yrs Sex: Female : 1950 Arrival Date: 02/17/2020 Time: 23:37 Bed 4 Private MD: ED Physician Minh Méndez HPI: 02/17 01:06 This 69 yrs old Female presents to ER via Ambulatory with complaints of pkl Dizziness, Vomiting. 01:06 The patient presents to the emergency department with nausea, vomiting, diarrhea. pkl Onset: The symptoms/episode began/occurred today. Associated signs and symptoms: Pertinent positives: headache and dizziness. Historical: - Allergies: 02/16 23:58 No Known Allergies; rv - PMHx: 23:58 Anemia; Crohn's; Fibromyalgia; Hypertension; Myocardial infarction; Rheumatoid rv Arthritis; - PSHx: 23:58 COLON SURGERY; Hysterectomy; rv - Immunization history:: Adult Immunizations up to date. - Social history:: Smoking status: Patient denies any tobacco usage or history of. ROS: 02/17 01:06 Eyes: Negative for injury, pain, redness, and discharge, ENT: Negative for injury, pkl pain, and discharge, Neck: Negative for injury, pain, and swelling, Cardiovascular: Negative for chest pain, palpitations, and edema, Respiratory: Negative for shortness of breath, cough, wheezing, and pleuritic chest pain. Abdomen/GI: Positive for nausea, vomiting, and diarrhea. Back: Negative for acute changes. : Negative for urinary symptoms. MS/extremity: Negative for acute changes. Skin: Negative for rash. Neuro: Positive for dizziness, headache. Exam: 01:06 Head/Face: Normocephalic, atraumatic. Eyes: Pupils equal round and reactive to light, pkl extra-ocular motions intact. Lids and lashes normal. Conjunctiva and sclera are non-icteric and not injected. Cornea within normal limits. Periorbital areas with no swelling, redness, or edema. ENT: Nares patent. No nasal discharge, no septal abnormalities noted. Tympanic membranes are normal and external auditory canals are clear. Oropharynx with no redness, swelling, or masses, exudates, or evidence of obstruction, uvula midline. Mucous membranes moist. Neck: Trachea midline, no thyromegaly or masses palpated, and no cervical lymphadenopathy. Supple, full range of motion without nuchal rigidity, or vertebral point tenderness. No Meningismus. Chest/axilla: Normal chest wall appearance and motion. Nontender with no deformity. No lesions are appreciated. Cardiovascular: Regular rate and rhythm with a normal S1 and S2. No gallops, murmurs, or rubs. Normal PMI, no JVD. No pulse deficits. Respiratory: Lungs have equal breath sounds bilaterally, clear to auscultation and percussion. No rales, rhonchi or wheezes noted. No increased work of breathing, no retractions or nasal flaring. 01:06 Abdomen/GI: Bowel sounds: active, Palpation: abdomen is soft and non-tender, in all quadrants, Rectal exam: Stool: guaiac negative. 01:06 Back: Exam negative for acute changes. 01:06 : Exam negative for acute changes. 01:06 Musculoskeletal/extremity: Exam is negative for acute changes. 01:06 Skin: Exam negative for rash. 01:06 Neuro: Orientation: is normal, Mentation: is normal, Memory: is normal, Cranial nerves: grossly normal, Cerebellar function: normal finger to nose testing, heel to weiss testing is normal, Motor: is normal, Sensation: is normal, Gait: is steady. Vital Signs: 02/16 23:55 BP 184 / 81; Pulse 73; Resp 17; Temp 98.2; Pulse Ox 100% ; Weight 81.19 kg; Height 5 rv ft. 4 in. (162.56 cm); Pain 10/10; 02/17 01:29 BP 143 / 99; Pulse 66; Resp 12; Pulse Ox 98% on R/A; Pain 5/10; rv 01:30 BP 143 / 99; Pulse 66; Resp 12; Pulse Ox 98% ; rv 02:11 BP 160 / 72; Pulse 63; Resp 16; Pulse Ox 100% on R/A; rv 03:00 BP 147 / 58; Pulse 67; Resp 16; Pulse Ox 100% on R/A; rv 03:24 BP 133 / 73; Pulse 71; Resp 17; Pulse Ox 100% on R/A; rv 02/16 23:55 Body Mass Index 30.72 (81.19 kg, 162.56 cm) rv 02:11 POST AMBULATION rv MDM: 00:29 Patient medically screened. pkl 01:32 Data reviewed: vital signs, nurses notes, lab test result(s). pkl 01:55 ED course: Patient feeling better. Ambulatory. Discussed lab results with patient. pkl Advised to follow up with pcp in 2 to 3 days. Return if symptoms are worse. Patient understood instructions. 03:27 ED course: Patient feeling better .Want to go home. Discussed lab and imaging studies pkl with patient. Advised to follow up with PCP in 2 to 3 days. To return if symptoms are worse. Patient understood instructions. 02/17 00:01 Order name: Basic Metabolic Panel rv 02/17 00:01 Order name: CBC with Diff rv 02/17 00:01 Order name: Hepatic Function rv 02/17 00:01 Order name: Lipase rv 02/17 00:39 Order name: Stool Culture pkl 02/17 00:43 Order name: CBC with Automated Diff; Complete Time: 01:29 EDMS 02/17 00:47 Order name: Basic Metabolic Panel; Complete Time: 01:29 EDMS 02/17 00:47 Order name: Liver (Hepatic) Function; Complete Time: 01:29 EDMS 02/17 00:47 Order name: Lipase; Complete Time: 01:29 EDMS 02/17 02:04 Order name: CT Head Brain wo Cont pkl 02/17 02:04 Order name: CT Abd/Pelvis - IV Contrast Only pkl 02/17 00:01 Order name: IV Saline Lock; Complete Time: 00:01 rv 02/17 00:01 Order name: Labs collected and sent; Complete Time: 00:01 rv Administered Medications: 00:45 Drug: NS 0.9% 1000 ml Route: IV; Rate: 1000 ml; Site: left forearm; rv 01:30 Follow up: IV Status: Completed infusion; IV Intake: 1000ml rv 00:45 Drug: Zofran (Ondansetron) 4 mg Route: IVP; Site: left forearm; rv 01:29 Follow up: Response: No adverse reaction; Marked relief of symptoms; Nausea is decreasedrv 00:45 Drug: LoMOTIL 2 tabs Route: PO; rv 01:28 Follow up: Response: No adverse reaction rv 00:56 Drug: morphine 4 mg {Note: rass 0.} Route: IVP; Site: left forearm; rv 01:29 Follow up: BP 143 / 99; Pulse 66 bpm; Resp 12 bpm; Pulse Ox 98% RA; Pain 5/10 Adult; rv Response: No adverse reaction; Marked relief of symptoms; Pain is decreased; RASS: Alert and Calm (0) 02:07 Drug: Zofran (Ondansetron) 4 mg Route: IVP; Site: left forearm; rv 03:26 Follow up: Response: No adverse reaction; Marked relief of symptoms rv 02:07 Drug: Antivert 50 mg Route: PO; rv 03:26 Follow up: Response: No adverse reaction; Marked relief of symptoms rv 02:08 Drug: NS 0.9% 1000 ml Route: IV; Rate: 1000 ml; Site: left forearm; rv 03:27 Follow up: IV Status: Completed infusion; IV Intake: 1000ml rv 03:00 Drug: morphine 2 mg {Note: RASS 0.} Route: IVP; Site: left forearm; rv 03:28 Follow up: Response: No adverse reaction; Marked relief of symptoms; RASS: Alert and rv Calm (0) Point of Care Testing: Guaiac: 00:38 Stool Guaiac: Negative; Stool Hemoccult Control: Pass; bb Disposition: 02/18/20 03:31 Discharged to Home. Impression: Gastroenteritis. Headache. Dizziness. - Condition is Stable. - Prescriptions for Antivert 25 mg Oral Tablet - take 1 tablet by ORAL route every 8 hours As needed; 20 tablet. Ultram 50 mg Oral Tablet - take 1 tablet by ORAL route every 8 hours As needed; 12 tablet. Zofran 4 mg Oral Tablet - take 1 tablet by ORAL route every 12 hours As needed; 10 tablet. - Medication Reconciliation Form, Thank You Letter, Antibiotic Education, Prescription Opioid Use form. - Follow up: Private Physician; When: 2 - 3 days; Reason: Re-evaluation by your physician. - Problem is new. - Symptoms have improved. Signatures: Dispatcher [employer] EDMS Minh Méndez MD MD pkl Yasmani Perkins RN RN rv Corrections: (The following items were deleted from the chart) 02:04 01:59 02/18/2020 01:59 Discharged to Home. Impression: Gastroenteritis. Headache. pkl Dizziness. Condition is Stable. Forms are Medication Reconciliation Form, Thank You Letter, Antibiotic Education, Prescription Opioid Use. Follow up: Private Physician; When: 2 - 3 days; Reason: Re-evaluation by your physician. Problem is new. Symptoms have improved. pkl 03:40 03:31 02/18/2020 03:31 Discharged to Home. Impression: Gastroenteritis. Headache. rv Dizziness. Condition is Stable. Forms are Medication Reconciliation Form, Thank You Letter, Antibiotic Education, Prescription Opioid Use. Follow up: Private Physician; When: 2 - 3 days; Reason: Re-evaluation by your physician. Problem is new. Symptoms have improved. pkl
[2020-02-18] MEDS ORDERED: MECLIZINE HCL 12.5 MG TAB ONE (02:16)
[2020-02-18] MEDS ORDERED: MORPHINE 2 MG/ML SYR ONE (03:15)
[2020-02-18 03:48] VITALS: TEMP 98.2
[2020-02-18 03:54] VITALS: O2SAT 100
[2020-02-18 03:59] VITALS: BP 133/73
--- NOTE | 2020-02-18 10:04 | RAD REPORT ---
EXAM DESCRIPTION: CT - Head Brain Wo Cont - 02/18/2020 3:14 am CLINICAL HISTORY: Dizziness; Headache TECHNIQUE: Contiguous axial CT images obtained through the brain without IV contrast. Coronal and sa gittal reformatted images were provided. This exam was performed according to our departmental dose-optimization program, which includes autom ated exposure control, adjustment of the mA and/or kV according to patient size and/or use of iterati ve reconstruction technique. COMPARISON: None available for comparison FINDINGS: Brain: No significant white matter changes. No focal mass effect. Romero-white matter differ entiation is within normal limits. No hemorrhage. Ventricles: No ventriculomegaly or midline shift. Extra-axial spaces: No extra-axial collection or hemorrhage. Paranasal sinuses and mastoid air cells: Well-aerated Vessels: There is atherosclerotic disease of the internal carotid arteries bilaterally. Bones: Unremarkable Soft tissues: Unremarkable IMPRESSION: No acute intracranial or extra-axial abnormality. Electronically signed by: Rafael Mcintyre MD 02/18/2020 2:49 AM CDT Due to temporary technical issues with the PACS/Fluency reporting system, reports are being signed by the in house radiologist without review as a courtesy to ensure prompt reporting. The interpreting r adiologist is fully responsible for the content of the report.
--- NOTE | 2020-02-18 10:11 | RAD REPORT ---
EXAM DESCRIPTION: CT - Abdomen Pelvis W Contrast - 02/18/2020 3:14 am CLINICAL HISTORY: Vomiting, diarrhea TECHNIQUE: Contiguous axial images obtained through the abdomen and pelvis following the uneventful administration of IV contrast. Coronal and sagittal reformatted images were provided. This exam was performed according to our departmental dose-optimization program, which includes autom ated exposure control, adjustment of the mA and/or kV according to patient size and/or use of iterati ve reconstruction technique. COMPARISON: None available for comparison. FINDINGS: Lung bases: No focal consolidation. The heart is mildly enlarged. Liver: Unremarkable Gallbladder and biliary system: Prior cholecystectomy. Intrahepatic and extrahepatic biliary dilatati on. The common duct measures 2.4 cm in maximum diameter with caliber change at the level of the ampul la. Pancreas: Mild to moderate pancreatic parenchymal atrophy. Spleen: Unremarkable Adrenals: Unremarkable Kidneys: Normal renal cortical enhancement. No calculi. No hydronephrosis. Bowel: Sigmoid anastomosis. Moderate stool throughout the large bowel. No obstruction. No appreciable mucosal thickening. Appendix: Normal caliber appendix. No findings to suggest acute appendicitis. Urinary bladder: Unremarkable Reproductive: There has been a hysterectomy. Gas within the vaginal canal and cuff. No adnexal cysts or masses are identified. Lymph nodes: No pathologically enlarged lymph nodes. Peritoneum: No focal fluid collection. No free air. Vessels: Mild atherosclerotic disease. No abdominal aortic aneurysm. Abdominal wall: Small fat-containing umbilical and bilateral inguinal hernias. Bones: Multilevel spondylosis. No acute fracture. IMPRESSION: 1. Moderate stool. No bowel obstruction. No appreciable mucosal thickening. 2. Prior cholecystectomy. Pronounced intrahepatic and extrahepatic biliary dilatation. Consider cor relation with LFTs. 3. Other findings as above. Electronically signed by: Rafael Mcintyre MD 02/18/2020 3:04 AM CDT Due to temporary technical issues with the PACS/Fluency reporting system, reports are being signed by the in house radiologist without review as a courtesy to ensure prompt reporting. The interpreting r adiologist is fully responsible for the content of the report.
== END 2020-02-18 03:40 | disposition home or self-care (01) ==
LOC: ER 23:34
DX: K52.9 Noninfective gastroenteritis and colitis, unspecified (principal); R51 Headache; R42 Dizziness and giddiness; I10 Essential (primary) hypertension
CPT/HCPCS: 96361; 85025; 80048; 36415; 80076; 83690; 70450; 74177; 96375; 96374; 99284; Q9967; J2270; J7030 ×2; J2405 ×2; J8597

== ENCOUNTER 2020-11-13 09:33 | Day surgery (SDC) | payer OTHER ==
[2020-11-10 09:59] LABS: Urine Appearance CLEAR (Clear); Urine Bilirubin NEGATIVE (Negative); Urine Blood NEGATIVE (Negative); Urine Color YELLOW (Yellow); Urine Glucose NEGATIVE (Negative); Urine Protein NEGATIVE (Negative); Urine Urobilinogen 0.2 mg/dL (0.2-1.0); Urine pH 5.5 (5.0-7.0)
[2020-11-10 10:04] LABS: Absolute Lymphocytes (CBC) 1.7 K/uL (0.7-4.9); Basophils % 0.7 % (0-1.3); Hematocrit 34.9 % (36.0-45.0); Lymphocytes % 35.1 % (15.3-44.8); MPV 7.8 fL (7.6-11.3); RBC Red Blood Cell Count 3.77 M/uL (3.86-4.86)
[2020-11-10 10:06] LABS: Urine Microscopic Reflex NO UMIC
[2020-11-10 10:16] LABS: Protime INR 0.93
[2020-11-10 10:17] LABS: Potassium 3.8 mmol/L (3.5-5.1)
[2020-11-13] MEDS ORDERED: Ringers Lactate 1,000 ML IV ONE ×2 (10:00→14:10)
[2020-11-13] MEDS ORDERED: ROCURONIUM 50 MG/5 ML VIAL IV ONE (10:28)
[2020-11-13] MEDS ORDERED: dexAMETHasone 10 MG/ML VIAL ONE (10:28)
[2020-11-13] MEDS ORDERED: propofoL 200 MG/20 ML VIAL IV ONE (10:28)
[2020-11-13] MEDS ORDERED: KETAMINE HCL 500 MG/5 ML VIAL ONE (10:28)
[2020-11-13] MEDS ORDERED: FENTANYL CITR 250 MCG/5 ML ONE (10:29)
[2020-11-13] MEDS ORDERED: NS 0.9% VIAL 10 ML ONE (10:29)
[2020-11-13] MEDS ORDERED: MIDAZOLAM HCL 2 MG/2 ML INJ ONE (10:29)
[2020-11-13] MEDS ORDERED: LIDOCAINE 2% MPF 5 ML VIAL ONE (10:29)
[2020-11-13] MEDS ORDERED: ONDANSETRON 4 MG/2 ML VIAL ONE (10:29)
[2020-11-13] MEDS: CEFAZOLIN/SWI 1gm 2 GM/20 ML SYR ONE ×3 (10:43→12:25)
[2020-11-13] MEDS ORDERED: NA CHLORIDE 0.9% 100 ML IV ONE (12:17)
[2020-11-13] MEDS ORDERED: VASOPRESSIN 20 UNIT/ML VIAL ONE (12:18)
[2020-11-13] MEDS ORDERED: CEFAZOLIN/SWI 1gm 1 GM/10 ML SYR ONE (12:18)
[2020-11-13] MEDS ORDERED: EPHEDRINE SULF 50 MG/ML VIAL ONE (12:53)
[2020-11-13] MEDS ORDERED: BUPIVACAINE 0.5% PF 10 ML VIAL ONE (13:10)
[2020-11-13] MEDS ORDERED: PROMETHAZINE INJ 25 MG/ML AMP IV PRN (16:04)
[2020-11-13] MEDS ORDERED: ACETAMINOPHEN 500 MG TAB PO PRN (16:04)
[2020-11-13] MEDS ORDERED: ONDANSETRON 4 MG/2 ML VIAL IV PRN (16:04)
[2020-11-13] MEDS ORDERED: MORPHINE 10 MG/ML VIAL ONE (16:20)
--- NOTE | 2020-11-13 16:24 | P.BOP ---
Preoperative diagnosis: stage2 anterior,vault prolapse,stage1 post defects,GRACIELA Postoperative diagnosis: stg2 ant,paravaginaldefect,vault &post [id number],GRACIELA,ISD Primary procedure: ant/PVD repair w raúl SSLF colpopexy biologic graft augmentation Secondary procedure: MUS TVT-O; Urethral bulking with Bulkamid cysto Lime Spreader: Suzy Segovia Estimated blood loss: 100 Specimen: none Findings: 0/0/-4/4/mod/6/-2/-2/na, scar on R>L SSL and R paravag areas Anesthesia: General Complications: None Drain(s): Urinary catheter Implants: TVT-O; Dermapure Fluids & blood products: 1500 Transferred to: Recovery Room Condition: Good
[2020-11-13] MEDS: MORPHINE 4 MG/ML SYR ONE ×2 (16:52→17:03)
[2020-11-13] MEDS ORDERED: MORPHINE 4 MG/ML SYR IV PRN (17:40)
[2020-11-13 17:41] VITALS: O2SAT 97
[2020-11-13] MEDS ORDERED: MORPHINE 4 MG/ML SYR ONE (17:58)
[2020-11-13] MEDS: Ringers Lactate 1,000 ML IV SCH (18:13)
[2020-11-13 18:33] VITALS: BMI 32.1
[2020-11-13] MEDS ORDERED: HYDROMORPHONE/PCA 10 MG/50 ML SYR IV PRN (19:17)
[2020-11-13] MEDS ORDERED: KETOROLAC 30 MG/ML INJ IV ONE (19:28)
[2020-11-13] MEDS ORDERED: KETOROLAC 30 MG/ML INJ IV PRN (19:52)
[2020-11-13] MEDS ORDERED: KETOROLAC 30 MG/ML INJ ONE (20:00)
[2020-11-13] MEDS ORDERED: MORPHINE 4 MG/ML SYR IV ONE (20:00)
[2020-11-13] MEDS: GABAPENTIN 400 MG CAP PO SCH (21:00)
[2020-11-13] MEDS: METOPROLOL TAR 25 MG TAB PO SCH (21:00)
[2020-11-13] MEDS ORDERED: HOME MED 1 EA UNK (Gabapentin [Gabapentin] 800 MG Tablet) PO SCH (21:00)
--- NOTE | 2020-11-13 22:18 | OP ---
Date of Procedure: 11/13/2020 Surgeon: Carissa Chance MD Corncob Pipe Supervisor: Suzy Segovia. Postoperative Diagnoses: Stage II anterior wall, stage I vault and posterior wall defects, stress ur inary incontinence. Postoperative Diagnoses: Stage II anterior wall defect with paravaginal support loss as the main pro blem, vault prolapse and posterior wall stage I defect, stress urinary incontinence and intrinsic ure thral sphincter deficiency. Procedures: Anterior repair with paravaginal defect repair using biological graft augmentation and s uspension to the paravaginal areas, then bilateral sacrospinous ligament fixation, colpopexy through the anterior approach, mid urethral sling TVT-O, urethral bulking with Bulkamid using 10 cc of the bu lking agent and cystoscopy. Anesthesia: General. Estimated Blood Loss: 100. Specimens: No specimens. Complications: No complications. Drains: Madison catheter. Findings: 0, 0, -4, 4, moderate 6, -2, -2 and nonapplicable. Scar on the right more than the left p aravaginal areas, significant scarring that did not allow the passage of the Capio suture. Some para vaginal old sutures were palpable. I was unable to use the anchor for the right paravaginal area on the white line, but was able to get tissues slightly medial to it by direct suturing. Excellent apic al and distal midline support was restored as well as on the left side where the suture was placed to the white line. Only the proximal 1/3 of the posterior wall had a slight enterocele and connective tissue defect, however the distal 2/3 of the posterior wall and the perineal body appeared to be scar red and well supported. The mobility of the urethra was only moderate. Possibility that she had a retropubic urethropexy was fairly significant given her old suture material palpated, so did not want to just perform a sling a s I was concerned that the patient could still have incontinence because of intrinsic sphincter defic iency, and on cystoscopy, the internal urethral meatus appeared to be patulous and wide. So bulking was decided to be done. Indication: The patient is a 69-year-old female who presented with vaginal bulge symptoms. She had significant overactive bladder symptoms as well. Testing has been done. After examination in the of [facility], she was found to have a stage II anterior prolapse with a stage I apical prolapse. However, kamryn flowers was having difficulty with the bulge as well as with emptying her bladder. So after discussing wit h her all the options including a pessary, pelvic floor muscle therapy and then use of medications fo r her overactive bladder, decided that this patient needs definitely urodynamic testing, and on the u rodynamic testing, her capacity appeared to be lowered. Her Valsalva leak point pressure was 30 at S 3. Her urethral pressure profile showed an average mid urethral closure pressure of 50 cm of water, which was slightly lower than what is optimal. So I went ahead and counseled the patient about the n eed for likely a sling, then anterior repair. She declined the pessary. So we discussed about the a nterior repair with a biologic graft augmentation. She has history of Crohn disease and history of r ectal prolapse, and these have been repaired through the abdomen. She also describes that she had an other procedure for prolapse most likely at the time of her hysterectomy or later. There was another procedure in early 1999 by someone in [place]. She presumes it to be a urologist or a pharmacy clinical specialist , and she has done well for many years. Then recently as her overactive bladder has gotten worse, kamryn flowers has seen someone in [place] and the options that were given to her, she did use the physical therap y device at home entire for multiple years and it had not helped her and she is now desiring a treatm ent for her overactive bladder. 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 Then, she was consented for her surgery. After all the consents were done, she was broug ht to the OR. Ancef 2 g were given. She was taken back to OR and placed in supine fashion on the op erating table. Procedure In Detail: She was given general anesthesia after she was placed in a supine fashion. The n, she was placed in a dorsal lithotomy position using Kevin stirrups. Pelvic exam was performed and POP-Q was as dictated above in the findings. So, given the difficulty of the significant paravagina l defect without a significant paravaginal areas were suspected to be the problem for this patient. Once the anterior midline wall was held with Allis clamps from the urethrovesical junction all the way to the proximal part of the wall, then this was evident that this was the area that was defective. Dilute vasopressin was injected in the midline and on the sides about 20 cc. Then incisi on was made in the midline with the scalpel. Metzenbaum was used to open the incision entirely from the bladder neck all the way to the apex. Then bladder was dissected away. There was significant am ount of scar tissue here. Paravaginal areas were entered after carefully dissecting bladder medially on both sides. On the right side, it was very difficult to get to the ischial spine. It was diffic ult to palpate it. However, the sacrospinous ligament was also difficult to be palpated. So I went on the left side first and I was able to get to the ischial spine and dissected the sacrospinous liga ment as there was scar that was palpable that seemed to go towards the posterior compartment. Stayed clear of this, sweeped the bowel medially and then once the sacrospinous ligament was all prepped fo r the suture, then the white line was cleaned on the left side. Once this was done, then I went on t he opposite side and there was significant amount of difficulty dissecting the rectum off the sacrosp inous ligament. Once this was done and accomplished, then similar dissection was performed on the wh ite line. This was decently exposed. The sutures were palpable here all the way to the anterior asp ect. Capio device was taken and Prolene was used on the Capio for the left sacrospinous, PDS on the white line on the left side. Then on the right side, PDS suture was placed, multiple attempts. Init ially unable since I was unable to dissect the sacrospinous, did the paravaginal bite, but along the paravaginal line, there was significant amount of scarring and the Capio device had issues with deplo kenn and needle catching. So device had to be used and every device was able to catch the suture on the first pass excepting one, and all these sutures were placed accordingly. The device w ill be returned to the company for question of checking whether there is any defect of material in it . A suture on the paravaginal area was taken with the help of retractors and visualizing the paravagina l area directly, the PDS suture on the Capio was used to take this bite and then attached to the biol ogic graft. The biologic graft was taken and trimmed to 8 cm for interspinous length 6 cm and vertical length and 5 cm of the distal and sutures were placed in the middle with 2-0 Prolene sutures on the biologic gr aft to the apex. The bladder was dissected up the apex carefully and this was exposed. The sacrospi nous sutures were placed with a abdoul stitch on both ends of the 8 cm side and this pulle d in place. Once the proximal part was fixed, the distal part was fixed as well with 3 PDS sutures i n the center attaching into the precervical fascia that was present here in the distal area of the va ginal canal. Once this was done, another 1 cm was trimmed, so only 5 cm of vaginal length was left on the graft. The sacrospinous sutures were tied down. There was excellent support and complete retraction of the anterior vaginal wall back in its place. The PDS suture was anchored to get an appropriate place on the biologic graft. Similar suture that was placed on the opposite side by direct placement of sutur e was attached to the appropriate side on the graft, and once all these were tied, there was excellen t support on the lateral aspect as well as the apex and the distal margin. Then, the vaginal epithel ium was fashioned to appropriately lay against the graft. Next, material was discarded. Closure wit h 2-0 Vicryl in a continuous running horizontal mattress fashion was done and there was excellent hem ostasis. The distal sutures were with 2-0 PDS. Those were secured before the paravaginal sutures were secured. Cystoscopy was performed. Excellent support at the anterior and apical aspect. Initially as I was d oing my procedure, I did not discern as much of urethral hypermobility. However, after the anterior repair was done, it was easy to see how there was mobility of the urethra, so decided to perform both the sling and bulking. Cystoscopy was performed with the normal 17-[place] sheath, 30-degree lens, n ormal saline. Excellent jets of urine from both ureteric orifices. No evidence of any trauma or for eign body in the bladder. The bladder was then drained. The pediatric cystoscope was taken and using the needle through the [facility] at 5 o'clock position, this was inserted into the patient's urethra to drain the bladder. The B ulkamid sheath was advanced all the way to the internal meatus. The needle was extended to the 2 cm marked. The entire Bulkamid system was retracted back 1.5 cm. Then the cystoscope and the sheath we re all pressed against the lateral wall on the same side with the bevel facing towards the lumen. Th e needle was inserted at least 0.5 cm. Then, bulking agent was injected at 5 o'clock, 2 o'clock. Th e 11 o'clock injection was not the best. It was too superficial and then at the 7 o'clock positions, 10 cc was injected 2.5 mL in each site. There was excellent apposition of the urethral mucosa. So at this time, the bladder was drained gently with a 12-[place] Madison and this was left in place. Mid urethral sling was performed. Mid urethral area was picked up and injected with dilute vasopressin. Allis clamps were used to retract after incision was made with a scalpel. Then ipsilateral track wa s performed on the right side, then on the left with the help of Metzenbaum scissors hugging the infe rior pubic ramus and entering the obturator space perforating the obturator membrane. The track was expanded as the scissors were pulled out. Similar thing done on the left side as well. Then, wing g uide was placed, spike passed. Plastic sheath exited at an appropriate place for marking per instruc tions. Plastic dilator was removed on both sides after both passes were taken. The sheath and mesh were held with a Sasha and tensioning was done in the middle leading Metzenbaum scissors between the patient's urethra and the sling. Then, the sheaths were taken out. Mesh was left in place, trimmed flush with the skin. Dermabond was applied. 2-0 Vicryl in a continuous running horizontal mattress fashion was used to close the vaginal epithelium here. The Dermabond was placed in the groins. Inst rument, needle, and sponge counts were correct. Rectal exam was performed. No evidence of any traum a to the rectum. Once the paravaginal area was dissected on the right, then the sacrospinous was dis sected and then the PDS suture was placed on the sacrospinous on this side. Once the entire procedur e was complete, vaginal packing was placed. Rectal exam was negative. Recovered from anesthesia. 1 2-[place] Madison was left in place and the patient will be observed overnight. Ebl: 100. SK/MODL Voice ID: [id number] Report ID: [id number]
[2020-11-14] MEDS: Ringers Lactate 1,000 ML IV SCH (01:00)
[2020-11-14 07:24] LABS: Absolute Lymphocytes (CBC) 2.3 K/uL (0.7-4.9); Basophils % 0.3 % (0-1.3); Hematocrit 32.8 % (36.0-45.0); Lymphocytes % 21.8 % (15.3-44.8); MPV 8.1 fL (7.6-11.3); RBC Red Blood Cell Count 3.47 M/uL (3.86-4.86)
[2020-11-14 07:50] LABS: Arterial Blood Carboxyhemoglob 1.6 % (0-1.5); Blood Gas Oxyhemoglobin 93.6 % (94-97); Blood O2 Saturation 96.2 % (92-98.5)
[2020-11-14 08:53] LABS: Potassium 3.7 mmol/L (3.5-5.1)
[2020-11-14 08:54] LABS: Magnesium 2.1 mg/dL (1.8-2.4); Phosphorus 3.6 mg/dL (2.5-4.9)
[2020-11-14] MEDS: GABAPENTIN 400 MG CAP PO SCH (09:00)
[2020-11-14] MEDS ORDERED: lisinopriL 10 MG TAB PO SCH (09:00)
[2020-11-14] MEDS ORDERED: CETIRIZINE HCL 5 MG TABLET PO SCH (09:00)
[2020-11-14] MEDS: METOPROLOL TAR 25 MG TAB PO SCH (09:00)
[2020-11-14] MEDS ORDERED: HOME MED 1 EA UNK (Cetirizine Hcl [Zyrtec] 10 MG Tablet) PO SCH (09:00)
--- NOTE | 2020-11-14 15:56 | EKG ---
Test Date: 2020-11-14 Test Time: 10:30:25 Enrichment Teacher: FLORES MEASUREMENT RESULTS: Intervals: Rate: 108 LA: QRSD: 80 QT: 340 QTc: 455 [place]: P: LA: QRS: -5 T: 29 INTERPRETIVE STATEMENTS: Atrial fibrillation with rapid ventricular response RSR' or QR pattern in V1 suggests right ventricular conduction delay Abnormal ECG Compared to ECG 10/27/2018 08:30:45 RSR' in V1 or V2 now present Sinus rhythm no longer present Electronically Signed On 11-14-20 15:55:52 CDT by Pascual Cueto
[2020-11-14 16:30] VITALS: BP 106/69; TEMP 98.6
--- NOTE | 2020-11-17 12:46 | CON ---
Date of Consultation: 11/14/2020 The patient was actually admitted to have surgery by Dr. Chance on 11/13/2020 and I saw the patient on 11/14/2020 because of atrial fibrillation, atypical chest pain and shortness of breath. History Of Present Illness: Ms. Bowling is 69, has a history of hypertension. She has had a cardiac wo rkup approximately 10 years ago, which was normal. She was in the hospital recovering from a gynecol ogical surgery and was noted to have an atrial fibrillation with rapid ventricular response. She has recently been told to cut her beta-raquel dose in half because of hypotension, was supposed to see a edge baster and business supervisor, but have not done either. Nevertheless, by the time I saw her, she was asymptomatic, but she was still in atrial fibrillation at a rate of about 90. No symptoms. Past Medical History: As stated above. Allergies: NONE. Review of Systems: Negative. Social History: Negative. Family History: Negative. Medications: At home include metoprolol 12.5 mg b.i.d. and lisinopril. Physical Examination: Vital Signs: Stable, afebrile. HEENT: Negative. Neck: Supple without any bruit, lymphadenopathy, JVD, or thyromegaly. Chest: Clear to auscultation and percussion. Cardiac: Revealed a regular rhythm and rate. No murmurs, gallops, or rubs. Abdomen: Benign. Extremities: Revealed no clubbing, cyanosis, or edema. Diagnostic Data: unremarkable except for the atrial fibrillation. Impression And Plan: 1.Paroxysmal atrial fibrillation. 2.Hypertension. The patient is asymptomatic. I suggest metoprolol and aspirin. I do not want to a nticoagulated her right after surgery. She will come to see me in the office next week. I will arra nge for an echocardiogram and a stress test before making decisions regarding anticoagulation. Hopef ully this is paroxysmal, may be secondary to the stress of surgery. The patient and her daughter und erstand the diagnosis of atrial fibrillation and its implication that was seen in the office in 2-3 d ay. She can go home today. KRISTY/JANNA Voice ID: [id number] Report ID: [id number]
== END 2020-11-14 16:35 | disposition home or self-care (01) ==
LOC: OR 09:33 → 2ND-WC 16:05 → OR 11-14 16:35
PROVIDERS: ATTEND Obstetrics & Gynecology
PROC: 0TSD4ZZ Reposition Urethra, Percutaneous Endoscopic Approach (ICD-10-PCS; 2020-11-13)
PROC: 0TVD8ZZ Restriction of Urethra, Via Natural or Artificial Opening Endoscopic (ICD-10-PCS; 2020-11-13)
PROC: 0USG7ZZ Reposition Vagina, Via Natural or Artificial Opening (ICD-10-PCS; 2020-11-13)
PROC: 0JUC0JZ Supplement of Pelvic Region Subcutaneous Tissue and Fascia with Synthetic Substitute, Open Approach (ICD-10-PCS; principal; 2020-11-13 11:15)
DX: N81.12 Cystocele, lateral (principal); N81.6 Rectocele; N39.3 Stress incontinence (female) (male); R39.14 Feeling of incomplete bladder emptying; N95.2 Postmenopausal atrophic vaginitis; I10 Essential (primary) hypertension; I48.0 Paroxysmal atrial fibrillation
CPT/HCPCS: 93005; 85025 ×2; 80048 ×2; 36415 ×2; 86900; 83735; 86850; 84100; 85610; 86901; 85730; 81003; 94010; 82805; 57260; 57267; 57288; 51715; 57282; J2704; J2250; J3010; J1100; J1170; J0690 ×2; J7120 ×4; J2405; L8606

== ENCOUNTER 2021-09-23 09:39 | Emergency (ER) | payer OTHER ==
--- OUTSIDE RECORDS SUMMARY | 2021-09-23 09:43 | XMS REPORT | Continuity of Care Document ---
:1950 Author Organization [facility] t Address [address] [place] [address] [address]. [address] [place] [address] Care Team Providers Name Role Phone NOBLE, E Primary Care Physician Unavailable LEE ANN Attending Clinician Unavailable Doctor Unassigned, Name Attending Clinician Unavailable MIGUEL Attending Clinician Unavailable VALENTINE CUEVAS Attending Clinician Unavailable VALENTINE CUEVAS Attending Clinician Unavailable Valentine Cuevas MD Attending Clinician 2, Lab Attending Clinician Unavailable Rosario RAMOS Attending Clinician Tawanda RAMOS Attending Clinician TAWANDA Attending Clinician Unavailable RADIOLOGY Attending Clinician Unavailable Radiology Attending Clinician Unavailable KENJI Admitting Clinician Unavailable Payers Payer Name Policy Type Policy Number Effective Date Expiration Date Vipul susangail FARZANEH/NANCY [id number] 2020 MEDICARE ADVANTAGE 00:00:00 [facility] [employer] IT [id number] 2020spring 00:00:00 Problems Condition Condition Condition Status Onset Resolution Last Treating Co mments Source Name Details Category Date Date Treatment Clinician Date Hypotensio Hypotensio Disease Active 2019-05 Overview : Univers n, n, 0-26 Added ity of unspecifie unspecifie 00:00: automatic [place] d d 00 ally from Medical hypotensio hypotensio request B ranch n type n type for surgery [id number] Hematochez Hematochez Disease Active 2019-05 Overview : Univers ia ia 0-26 Added ity of 00:00: automatic [place] 00 ally from Medical request Branch for surgery [id number] 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 U seraers obia obia 1-05 ity of 00:00: [place] [facility] Fibromyalg Fibromyalg Disease Active U nivers ia ia 02-15 ity of :: [place] [facility] Lumbar Lumbar Disease Active Univers spondylosi spondylosi 02-15 it y of s s 00:: [place] [facility] Myofascial Myofascial Disease Active U nivers pain pain 02-15 ity of :: [place] [facility] Arthralgia Arthralgia Disease Active U nivers of both of both 02-15 ity of knees knees 00:00: [address] No known No known Disease Unive rs active active ity of problems problems [facility] Allergies, Adverse Reactions, Alerts Allergy Allergy Status Severity Reaction(s) Onset Inactive Treating Comm ents Source Name Type Date Date Clinician NO KNOWN Drug Active Univers ALLERGIE Class ity of S [facility] Social History Social Habit Start Date Stop Date Quantity Comments Source Exposure to Not sure [facility] SARS-CoV-2 (event) [facility] Tobacco use and 2020-06-02 2020-06-02 Never used [facility] exposure 00:00:00 00:00:00 [facility] Sex [birth year] [facility] 00:00:00 00:00:00 [facility] Smoking Status Start Date Stop Date Source Unknown if ever smoked [facility] Never smoker [facility] Medications Ordered Filled Start Stop Current Ordering Indication Dosage Frequency Signature Comments Components Source Medication Medication Date Date Medication? Clinician (SIG) Name Name lisinopriL Yes lisinopril U nivers 20 mg 1-11 20 mg ity of tablet 16:32: tablet [address] mesalamine Yes 500mg Take 500 [place] 500 mg CR 1-11 mg by ity of capsule 16:32: mouth [address] [place] [address] (four) Medical times [place] daily. cetirizine Yes 10mg Take 10 mg U nivers (ZYRTEC) 10 1-11 by mouth ity of mg tablet 16:32: daily. [address] vitamin Yes 1000ug Take 1,000 [place] B-12 1-11 mcg by ity of (VITAMIN 16:32: mouth [place] B-12) 1,000 32 daily. Medica l mcg tablet Branch Cholecalcif 2020-0 Yes 1{capsu Take 1 U nivers richard, 1-11 le} capsule by ity of Vitamin D3, 16:32: mouth [place] (VITAMIN 32 daily. Medical D3) 50 mcg Branch (2,000 unit) capsule vit A-vit 0 Yes Take by [facility] [place] [facility] C-biotin-zi 1-11 mouth. ity of nc-copper 16:32: [place] (HAIR-SKIN- 32 Medical NAIL,VIT Branch A,C-BIOTIN, ) 2,500 unit-100 mg-2,500 mcg Cap lisinopriL 2020-0 Yes lisinopril U nivers 20 mg 1-11 20 mg ity of tablet 16:32: tablet [address] Branch mesalamine 0 Yes 500mg Take 500 [place] 500 mg CR 1-11 mg by ity of capsule 16:32: mouth 4 [place] [address] (four) Medical times Branch daily. cetirizine 0 Yes 10mg Take 10 mg U nivers (ZYRTEC) 10 1-11 by mouth ity of mg tablet 16:32: daily. [address] Branch vitamin 2020-0 Yes 1000ug Take 1,000 [place] B-12 1-11 mcg by ity of (VITAMIN 16:32: mouth [place] B-12) 1,000 32 daily. Medica l mcg tablet Branch Cholecalcif 2020-0 Yes 1{capsu Take 1 U nivers richard, 1-11 le} capsule by ity of Vitamin D3, 16:32: mouth [place] (VITAMIN 32 daily. Medical D3) 50 mcg Branch (2,000 unit) capsule vit A-vit 0 Yes Take by [facility] [place] [facility] C-biotin-zi 1-11 mouth. ity of nc-copper 16:32: [place] (HAIR-SKIN- 32 Medical NAIL,VIT Branch A,C-BIOTIN, ) 2,500 unit-100 mg-2,500 mcg Cap lisinopriL 2020-0 Yes lisinopril U nivers 20 mg 1-11 20 mg ity of tablet 16:32: tablet [address] Branch mesalamine 2020-0 Yes 500mg Take 500 [place] 500 mg CR 1-11 mg by ity of capsule 16:32: mouth 4 [place] [address] (four) Medical times Branch daily. cetirizine 2020-0 Yes 10mg Take 10 mg U nivers (ZYRTEC) 10 1-11 by mouth ity of mg tablet 16:32: daily. [address] vitamin 2020-0 Yes 1000ug Take 1,000 [place] B-12 1-11 mcg by ity of (VITAMIN 16:32: mouth [place] B-12) 1,000 32 daily. Medica l mcg tablet Branch Cholecalcif 2020-0 Yes 1{capsu Take 1 U nivers richard, 1-11 le} capsule by ity of Vitamin D3, 16:32: mouth [place] (VITAMIN 32 daily. Medical D3) 50 mcg Branch (2,000 unit) capsule vit A-vit 2020-0 Yes Take by [facility] [place] [facility] C-biotin-zi 1-11 mouth. ity of nc-copper 16:32: [place] (HAIR-SKIN- 32 Medical NAIL,VIT Branch A,C-BIOTIN, ) 2,500 unit-100 mg-2,500 mcg Cap lisinopriL 2020-0 Yes lisinopril U nivers 20 mg 1-11 20 mg ity of tablet 16:32: tablet [address] mesalamine 0 Yes 500mg Take 500 [place] 500 mg CR 1-11 mg by ity of capsule 16:32: mouth [address] [place] [address] (four) Medical times [place] daily. cetirizine 0 Yes 10mg Take 10 mg U nivers (ZYRTEC) 10 1-11 by mouth ity of mg tablet 16:32: daily. [address] vitamin 2020-0 Yes 1000ug Take 1,000 [place] B-12 1-11 mcg by ity of (VITAMIN 16:32: mouth [place] B-12) 1,000 32 daily. Medica l mcg tablet Branch Cholecalcif 2020-0 Yes 1{capsu Take 1 U nivers richard, 1-11 le} capsule by ity of Vitamin D3, 16:32: mouth [place] (VITAMIN 32 daily. Medical D3) 50 mcg Branch (2,000 unit) capsule vit A-vit 2020-0 Yes Take by [facility] [place] [facility] C-biotin-zi 1-11 mouth. ity of nc-copper 16:32: [place] (HAIR-SKIN- 32 Medical NAIL,VIT Branch A,C-BIOTIN, ) 2,500 unit-100 mg-2,500 mcg Cap lisinopriL 2020-0 Yes lisinopril U nivers 20 mg 1-11 20 mg ity of tablet 16:32: tablet [place] [address] Medical Branch mesalamine 2020-0 Yes 500mg Take 500 [place] 500 mg CR 1-11 mg by ity of capsule 16:32: mouth [address] [place] [address] (four) Medical times Branch daily. cetirizine 2020-0 Yes 10mg Take 10 mg U nivers (ZYRTEC) 10 1-11 by mouth ity of mg tablet 16:32: daily. [address] vitamin 2020-0 Yes 1000ug Take 1,000 [place] B-12 1-11 mcg by ity of (VITAMIN 16:32: mouth [place] B-12) 1,000 32 daily. Medica l mcg tablet Branch Cholecalcif 2020-0 Yes 1{capsu Take 1 U nivers richard, 1-11 le} capsule by ity of Vitamin D3, 16:32: mouth [place] (VITAMIN 32 daily. Medical D3) 50 mcg Branch (2,000 unit) capsule vit A-vit 0 Yes Take by [facility] ers C-biotin-zi 1-11 mouth. ity of nc-copper 16:32: [place] (HAIR-SKIN- 32 Medical NAIL,VIT Branch A,C-BIOTIN, ) 2,500 unit-100 mg-2,500 mcg Cap lisinopriL 2020-0 Yes lisinopril U nivers 20 mg 1-11 20 mg ity of tablet 16:32: tablet [address] Branch mesalamine 2020-0 Yes 500mg Take 500 [place] 500 mg CR 1-11 mg by ity of capsule 16:32: mouth [address] [place] [address] (four) Medical times [place] daily. cetirizine 2020-0 Yes 10mg Take 10 mg U nivers (ZYRTEC) 10 1-11 by mouth ity of mg tablet 16:32: daily. [address] vitamin 2020-0 Yes 1000ug Take 1,000 [place] B-12 1-11 mcg by ity of (VITAMIN 16:32: mouth [place] B-12) 1,000 32 daily. Medica l mcg tablet Branch Cholecalcif 2021-0 Yes 1{capsu Take 1 U nivers richard, 06-02 le} capsule by ity of Vitamin D3, 16:32: mouth [place] (VITAMIN 32 daily. Medical D3) 50 mcg Branch (2,000 unit) capsule vit A-vit Yes Take by Univ ers C-biotin-zi 06-02 mouth. ity of nc-copper 16:32: [place] (HAIR-SKIN- 32 Medical NAIL,VIT Branch A,C-BIOTIN, ) 2,500 unit-100 mg-2,500 mcg Cap LORazepam 2 Yes 2mg Take 1 Univ ers mg tablet 1-11 tablet by ity o f 00:00: mouth (two) Medical times Branch daily. Take one tablet 30 minutes before leaving for MRI, if needed take 2nd tablet when arriving for MRI LORazepam Yes 2mg Take 1 Univ ers mg tablet 1-11 tablet by ity o f 00:00: mouth () Medical times Branch daily. Take one tablet 30 minutes before leaving for MRI, if needed take 2nd tablet when arriving for MRI LORazepam Yes 2mg Take 1 Univ ers mg tablet 1-11 tablet by ity o f 00:00: mouth () Medical times Branch daily. Take one tablet 30 minutes before leaving for MRI, if needed take 2nd tablet when arriving for MRI LORazepam 2 Yes 2mg Take 1 Univ ers mg tablet 1-11 tablet by ity o f 00:00: mouth () Medical times Branch daily. Take one tablet 30 minutes before leaving for MRI, if needed take 2nd tablet when arriving for MRI LORazepam 2 Yes 2mg Take 1 Univ ers mg tablet 1-11 tablet by ity o f 00:00: mouth () Medical times Branch daily. Take one tablet 30 minutes before leaving for MRI, if needed take 2nd tablet when arriving for MRI LORazepam 2 Yes 2mg Take 1 Univ ers mg tablet 1-11 tablet by ity o f 00:00: mouth () Medical times Branch daily. Take one tablet 30 minutes before leaving for MRI, if needed take 2nd tablet when arriving for MRI cetirizine 2019-05 Yes 10mg Take 10 mg U nivers (ZYRTEC) 10 0-27 by mouth ity of mg tablet 23:48: daily. [address] vitamin 2020- Yes 1000ug Take 1,000 [place] B-12 0-27 mcg by ity of (VITAMIN 23:48: mouth [place] B-12) 1,000 27 daily. Medica l mcg tablet Branch Cholecalcif 2020- Yes 1{capsu Take 1 U nivers richard, 0-27 le} capsule by ity of Vitamin D3, 23:48: mouth [place] (VITAMIN 27 daily. Medical D3) 50 mcg Branch (2,000 unit) capsule vit A-vit 2019- Yes Take by [facility] [place] [facility] C-biotin-zi 0-27 mouth. ity of nc-copper 23:48: [place] (HAIR-SKIN- 27 Medical NAIL,VIT Branch A,C-BIOTIN, ) 2,500 unit-100 mg-2,500 mcg Cap lisinopriL 2019- Yes lisinopril U nivers 20 mg 0-27 20 mg ity of tablet 23:48: tablet [address] Branch mesalamine 2019- Yes 500mg Take 500 [place] 500 mg CR 0-27 mg by ity of capsule 23:48: mouth 4 [place] [address] (four) Medical times Branch daily. cetirizine 2019-05 Yes 10mg Take 10 mg U nivers (ZYRTEC) 10 0-27 by mouth ity of mg tablet 23:48: daily. [address] vitamin 2020- Yes 1000ug Take 1,000 [place] B-12 0-27 mcg by ity of (VITAMIN 23:48: mouth [place] B-12) 1,000 27 daily. Medica l mcg tablet Branch Cholecalcif 2020- Yes 1{capsu Take 1 U nivers richard, 0-27 le} capsule by ity of Vitamin D3, 23:48: mouth [place] (VITAMIN 27 daily. Medical D3) 50 mcg Branch (2,000 unit) capsule vit A-vit 2019- Yes Take by [facility] [place] [facility] C-biotin-zi 0-27 mouth. ity of nc-copper 23:48: [place] (HAIR-SKIN- 27 Medical NAIL,VIT Branch A,C-BIOTIN, ) 2,500 unit-100 mg-2,500 mcg Cap lisinopriL 2019- Yes lisinopril U nivers 20 mg 0-27 20 mg ity of tablet 23:48: tablet [place] Medical Branch mesalamine 2019-05 Yes 500mg Take 500 [place] 500 mg CR 0-27 mg by ity of capsule 23:48: mouth 4 [place] 27 (four) Medical times Branch daily. metoprolol 2019-05- No [id number] 25mg Take 0.5 Univers tartrate 50 06-17 [id number] tablets by ity of mg tablet 00:00: 05:59 [place] (two[place] Medical times Branch daily for 90 days. pantoprazol 2019-05- No [id number] 40mg Take 1 Univers e 40 mg EC 06-17 [id number] tablet by i ty of tablet 00:00: 05:59 mouth [place] 00 :00 daily for Medical 90 days. Branch metoprolol 2019-05- No [id number] 25mg Take 0.5 Univers tartrate 50 06-17 [id number] tablets by ity of mg tablet 00:00: 05:59 [place] (two[place] Medical times Branch daily for 90 days. pantoprazol 2019-05- No [id number] 40mg Take 1 Univers e 40 mg EC 06-17 [id number] tablet by i ty of tablet 00:00: 05:59 mouth [place] 00 :00 daily for Medical 90 days. Branch metoprolol 2019-05- No [id number] 25mg Take 0.5 Univers tartrate 50 06-17 [id number] tablets by ity of mg tablet 00:00: 05:59 [place] (two[place] Medical times Branch daily for 90 days. pantoprazol 2019-05- No [id number] 40mg Take 1 Univers e 40 mg EC 06-17 [id number] tablet by i ty of tablet 00:00: 05:59 mouth [place] 00 :00 daily for Medical 90 days. Branch metoprolol 2019-05- No [id number] 25mg Take 0.5 Univers tartrate 50 06-17 [id number] tablets by ity of mg tablet 00:00: 05:59 [place] (two) Medical times Branch daily for 90 days. pantoprazol 2019-05- No [id number] 40mg Take 1 Univers e 40 mg EC 006-17 [id number] tablet by i ty of tablet 00:00: 05:59 mouth [place] 00 :00 daily for Medical 90 days. Branch metoprolol 2019-05- No [id number] 25mg Take 0.5 Univers tartrate 50 0-18 06- [id number] tablets by ity of mg tablet 00:00: 05:59 [place] (two[place] Medical times [place] daily for 90 days. pantoprazol 2019-05- No [id number] 40mg Take 1 Univers e 40 mg EC 006-17 [id number] tablet by i ty of tablet 00:00: 05:59 mouth [place] 00 :00 daily for Medical 90 days. Branch metoprolol 2019-05- No [id number] 25mg Take 0.5 Univers tartrate 50 006-17 [id number] tablets by ity of mg tablet 00:00: 05:59 [place] (two[place] Medical times [place] daily for 90 days. pantoprazol 2019-05- No [id number] 40mg Take 1 Univers e 40 mg EC 006-17 [id number] tablet by i ty of tablet 00:00: 05:59 mouth [place] 00 :00 daily for Medical 90 days. Branch metoprolol 2019-05 Yes metoprolol U nivers tartrate 50 0-26 tartrate ity of mg tablet 17:43: 50 mg tablet Medical Branch lisinopriL 2019-05 Yes lisinopril U nivers 20 mg 0-26 20 mg ity of tablet 17:43: tablet [facility] mesalamine 2019-05 Yes 500mg Take 500 [place] 500 mg CR 0-26 mg by ity of capsule 17:43: mouth 4 (four) Medical times [place] daily. cetirizine 2019-05 Yes 10mg Take 10 mg U nivers (ZYRTEC) 10 0-26 by mouth ity of mg tablet 17:43: daily. [place] [facility] vitamin 2019- Yes 1000ug Take 1,000 [place] B-12 0-26 mcg by ity of (VITAMIN 17:43: mouth [place] B-12) 1,000 01 daily. Medica l mcg tablet Branch Cholecalcif 2019-05 Yes 1{capsu Take 1 U nivers richard, 0-26 le} capsule by ity of Vitamin D3, 17:43: mouth [place] (VITAMIN 01 daily. Medical D3) 50 mcg Branch (2,000 unit) capsule vit A-vit 2019-05 Yes Take by [facility] [place] [facility] C-biotin-zi 0-26 mouth. ity of nc-copper 17:43: [place] (HAIR-SKIN- Medical NAIL,VIT Branch A,C-BIOTIN, ) 2,500 unit-100 mg-2,500 mcg Cap metoprolol 2019-05 Yes metoprolol U nivers tartrate 50 0-26 tartrate ity of mg tablet 17:43: 50 mg tablet Medical Branch lisinopriL 2019-05 Yes lisinopril U nivers 20 mg 0-26 20 mg ity of tablet 17:43: tablet Medical Branch mesalamine 2019-05 Yes 500mg Take 500 [place] 500 mg CR 0-26 mg by ity of capsule 17:43: mouth 4 (four) Medical times Branch daily. cetirizine 2019-05 Yes 10mg Take 10 mg U nivers (ZYRTEC) 10 0-26 by mouth ity of mg tablet 17:43: daily. Medical Branch vitamin 2019-05 Yes 1000ug Take 1,000 [place] B-12 0-26 mcg by ity of (VITAMIN 17:43: mouth [place] B-12) 1,000 01 daily. Medica l mcg tablet Branch Cholecalcif 2019-05 Yes 1{capsu Take 1 U nivers richard, 0-26 le} capsule by ity of Vitamin D3, 17:43: mouth [place] (VITAMIN daily. Medical D3) 50 mcg Branch (2,000 unit) capsule vit A-vit 2019- Yes Take by [facility] [place] [facility] C-biotin-zi 0-26 mouth. ity of nc-copper 17:43: [place] (HAIR-SKIN- Medical NAIL,VIT Branch A,C-BIOTIN, ) 2,500 unit-100 mg-2,500 mcg Cap metoprolol 2019-05 Yes metoprolol U nivers tartrate 50 0-26 tartrate ity of mg tablet 17:43: 50 mg tablet Medical Branch lisinopriL 2019-05 Yes lisinopril U nivers 20 mg 0-26 20 mg ity of tablet 17:43: tablet Medical Branch mesalamine 2019- Yes 500mg Take 500 [place] 500 mg CR 0-26 mg by ity of capsule 17:43: mouth 4 (four) Medical times Branch daily. cetirizine 2019-05 Yes 10mg Take 10 mg U nivers (ZYRTEC) 10 0-26 by mouth ity of mg tablet 17:43: daily. Medical Branch vitamin 2020- Yes 1000ug Take 1,000 [place] B-12 0-26 mcg by ity of (VITAMIN 17:43: mouth [place] B-12) 1,000 01 daily. Medica l mcg tablet Branch Cholecalcif 2019-05 Yes 1{capsu Take 1 U nivers richard, 0-26 le} capsule by ity of Vitamin D3, 17:43: mouth [place] (VITAMIN 01 daily. Medical D3) 50 mcg [place] (2,000 unit) capsule vit A-vit 2019-05 Yes Take by [facility] ers C-biotin-zi 0-26 mouth. ity of nc-copper 17:43: [place] (HAIR-SKIN- Medical NAIL,VIT Branch A,C-BIOTIN, ) 2,500 unit-100 mg-2,500 mcg Cap gabapentin 2019-05 Yes Univers 800 mg 0-19 ity of tablet 00:00: [place] [facility] gabapentin 2020- Yes Univers 800 mg 0-19 ity of tablet 00:00: [place] [facility] gabapentin 2020- Yes Univers 800 mg 0-19 ity of tablet 00:00: [place] [facility] gabapentin 2020- Yes Univers 800 mg 0-19 ity of tablet 00:00: [place] [facility] gabapentin 2020- Yes Univers 800 mg 0-19 ity of tablet 00:00: [place] [facility] gabapentin 2020- Yes Univers 800 mg 0-19 ity of tablet 00:00: [place] [facility] gabapentin 2020- Yes Univers 800 mg 0-19 ity of tablet 00:00: [place] [facility] gabapentin 2020- Yes Univers 800 mg 0-19 ity of tablet 00:00: [place] [facility] gabapentin 2020- Yes Univers 800 mg 0-19 ity of tablet 00:00: [place] [facility] gabapentin 2020- Yes Univers 800 mg 0-19 ity of tablet 00:00: [place] [facility] gabapentin 2020-1 Yes Univers 800 mg 0-19 ity of tablet 00:00: [place] 00 Medical Branch acetaminoph 2020-0 Yes TK 1 T PO U nivers en-codeine 9-29 QID PRN ity of 300-60 mg 00:00: [place] tablet 00 Medical Branch acetaminoph 2020-0 Yes TK 1 T PO U nivers en-codeine 9-29 QID PRN ity of 300-60 mg 00:00: [place] tablet 00 Medical Branch acetaminoph 2020-0 Yes TK 1 T PO U nivers en-codeine 9-29 QID PRN ity of 300-60 mg 00:00: [place] tablet 00 Medical Branch acetaminoph 2020-0 Yes TK 1 T PO U nivers en-codeine 9-29 QID PRN ity of 300-60 mg 00:00: [place] tablet 00 Medical Branch acetaminoph 2020-0 Yes TK 1 T PO U nivers en-codeine 9-29 QID PRN ity of 300-60 mg 00:00: [place] tablet 00 Medical Branch acetaminoph 2020-0 Yes TK 1 T PO U nivers en-codeine 9-29 QID PRN ity of 300-60 mg 00:00: [place] tablet 00 Medical Branch acetaminoph 2020-0 Yes TK 1 T PO U nivers en-codeine 9-29 QID PRN ity of 300-60 mg 00:00: [place] tablet 00 Medical Branch acetaminoph 2020-0 Yes TK 1 T PO U nivers en-codeine 9-29 QID PRN ity of 300-60 mg 00:00: [place] tablet 00 Medical Branch acetaminoph 2020-0 Yes TK 1 T PO U nivers en-codeine 9-29 QID PRN ity of 300-60 mg 00:00: [place] tablet 00 Medical Branch acetaminoph 2020-0 Yes TK 1 T PO U nivers en-codeine 9-29 QID PRN ity of 300-60 mg 00:00: [place] tablet 00 Medical Branch acetaminoph 2020-0 Yes TK 1 T PO U nivers en-codeine 9-29 QID PRN ity of 300-60 mg 00:00: [place] tablet 00 Medical Branch oxybutynin 2020-0 Yes TK 1 T PO [place] 15 mg 24 hr 9-24 QD ity of tablet 00:00: [place] 00 Medical Branch oxybutynin 2020-0 Yes TK 1 T PO [place] 15 mg 24 hr 9-24 QD ity of tablet 00:00: [place] [facility] oxybutynin 2020-0 Yes TK 1 T PO [place] 15 mg 24 hr 9-24 QD ity of tablet 00:00: [place] [facility] oxybutynin 2020-0 Yes TK 1 T PO [place] 15 mg 24 hr 9-24 QD ity of tablet 00:00: [place] [facility] oxybutynin 2020-0 Yes TK 1 T PO [place] 15 mg 24 hr 9-24 QD ity of tablet 00:00: [place] [facility] oxybutynin 2020-0 Yes TK 1 T PO [place] 15 mg 24 hr 9-24 QD ity of tablet 00:00: [place] [facility] oxybutynin 2020-0 Yes TK 1 T PO [place] 15 mg 24 hr 9-24 QD ity of tablet 00:00: [place] [facility] oxybutynin 2020-0 Yes TK 1 T PO [place] 15 mg 24 hr 9-24 QD ity of tablet 00:00: [place] [facility] oxybutynin 2020-0 Yes TK 1 T PO [place] 15 mg 24 hr 9-24 QD ity of tablet 00:00: [place] [facility] oxybutynin 2020-0 Yes TK 1 T PO [place] 15 mg 24 hr 9-24 QD ity of tablet 00:00: [place] [facility] oxybutynin 2020-0 Yes TK 1 T PO [place] 15 mg 24 hr 9-24 QD ity of tablet 00:00: [address] No known No Univers medications [facility] Vital Signs Vital Name Observation Time Observation Value Comments Source Systolic blood 2020-06-02 16:33:00 125 mm[Hg] Univer sity of pressure [facility] Diastolic blood 2020-06-02 16:33:00 85 mm[Hg] Unive rsity of pressure [facility] Heart rate 2020-06-02 16:33:00 79 /min [facility] Body height 2020-06-02 16:33:00 162.6 cm [facility] Body weight 2020-06-02 16:33:00 86.637 kg [facility] BMI 2020-06-02 16:33:00 32.79 kg/m2 Universi ty of [place] [facility] Oxygen saturation in 2020-06-02 16:33:00 99 /min University of Arterial blood by [facility] [place] [facility] Pulse oximetry Branch Systolic blood 2020-03-17 17:47:00 68 mm[Hg] Univer sity of pressure [place] [facility] Diastolic blood 2020-03-17 17:47:00 38 mm[Hg] Unive rsity of pressure [place] [facility] Heart rate 2020-03-17 17:30:00 68 /min [facility]i ty [facility] [place] [facility] Body temperature 2020-03-17 17:30:00 36.94 Olivia Univ ersity of [place] [facility] Respiratory rate 2020-03-17 17:30:00 20 /min Univ ersity of [place] [facility] Body height 2020-03-17 17:30:00 162.6 cm [facility]i ty [facility] [place] [facility] Body weight 2020-03-17 17:30:00 82.283 kg [facility] [place] [facility] BMI 2020-03-17 17:30:00 31.14 kg/m2 Universi ty of [place] [facility] Oxygen saturation in 2020-03-17 17:30:00 97 /min University of Arterial blood by [facility] [place] [facility] Pulse oximetry Branch Systolic blood 2020-03-17 17:47:00 68 mm[Hg] Univer sity of pressure [place] [facility] Diastolic blood 2020-03-17 17:47:00 38 mm[Hg] Unive rsity of pressure [place] [facility] Heart rate 2020-03-17 17:30:00 68 /min Universi ty [facility] [place] [facility] Body temperature 2020-03-17 17:30:00 36.94 Olivia Univ ersity of [place] [facility] Respiratory rate 2020-03-17 17:30:00 20 /min Univ ersity [facility] [place] [facility] Body height 2020-03-17 17:30:00 162.6 cm [facility] [place] [facility] Body weight 2020-03-17 17:30:00 82.283 kg [facility] [place] [facility] BMI 2020-03-17 17:30:00 31.14 kg/m2 [facility] [place] [facility] Oxygen saturation in 2020-03-17 17:30:00 97 /min University of Arterial blood by [facility] [place] [facility] Pulse oximetry Branch Procedures Procedure Date / Time Performing Clinician Source Performed REFERRAL- 2020-10-08 05:01:00 Doctor Unassigned, [facility] REQUEST/RESPONSE [place] [facility] REFERRAL- 2020-06-17 06:01:00 Doctor Unassigned, [facility] REQUEST/RESPONSE [place] [facility] COGNITIVE ASSESSMENT 2020-06-02 06:01:00 Doctor Unagenoigned, [facility] [place] [facility] REFERRAL- 2020-03-26 06:01:00 Doctor Unassigned, [facility] REQUEST/RESPONSE [place] [facility] INSURANCE CORRESPONDENCE 2020-03-04 05:01:00 Doctor Unassigned, [facility] [place] [facility] REFERRAL- 2020-02-19 05:01:00 Doctor Unassigned, [facility] REQUEST/RESPONSE [place] [facility] [place] XR CHEST 2 VW 2019-07-19 19:24:[address] [facility] Encounters Start End Encounter Admission Attending Care Care Encounter Source Date/Time Date/Time Type Type Clinicians Facility Department ID 2021-03-21 Emergency [facility] [id number] Univers 01:04:35 ity [facility] 2020-12-27 2020-12-27 Outpatient R [facility] [id number] Univers 20:20:00 20:20:00 [id number] [facility] 2020-12-27 2020-12-27 Outpatient R LEE ANN [facility] [id number] Univers 20:20:00 20:20:00 DRE dominguez o f [facility] 2020-10-08 2020-10-08 Orders Doctor WEBSTER 1.2.840.114 [id number] [facility] 00:00:00 00:00:00 Only UnassignedDORITA [id number] ity of [place] [facility] [id number] Jimenez as [phone] [address] 2020-08-20 2020-08-20 Emergency MIGUEL, [facility] [id number] [place] [address] 00:00:00 00:00:00 TAMI[facility] 2020-07-23 2020-07-23 Outpatient R JANES CUEVAS [facility] [id number] Univers 00:00:00 00:00:00 JANES CUEVAS [id number] [facility] 2020-07-23 2020-07-23 Outpatient JANES PARMAR [facility] [id number] Univers 00:00:00 00:00:00 JANES CUEVAS naveeddaisy [facility] 2020-07-10 2020-07-10 Outpatient JANES PARMAR [facility] [id number] Univers 16:00:00 16:00:00 MASON JANES [id number] [facility] 2020-07-10 2020-07-10 Outpatient JANES PARMAR [facility] [id number] Univers 00:00:00 00:00:00 JANES CUEVAS daisy [facility] 2020-06-19 2020-06-19 Outpatient JANES PARMAR [facility] [id number] Univers 00:00:00 00:00:00 JANES CUEVAS [id number] [facility] 2020-06-19 2020-06-19 Outpatient JANES PARMAR [facility] [id number] Univers 00:00:00 00:00:00 JANES CUEVAS daisy [facility] 2020-06-17 2020-06-17 Orders Doctor ELEANOR 1.2.840.114 [id number] Univers 00:00:00 00:00:00 Only Unassigned, DORITA [id number] ity of [place] [facility] [id number] Jim[place] as [phone] [place] [address] [address] 2020-06-02 2020-06-02 Office Mason [facility] 1.2.840.114 [id number] Univers 10:14:38 12:01:07 Visit Janes Villalobos 350.1.13.10 ity of [place] [phone] S[place] dical [facility] 092 [facility] 2020-06-02 2020-06-02 [employer] Supervisor 2, Adc Lab [facility] 1.2.840.114 [id number] Univers 11:33:22 11:48:22 Visit Janes Cuevas 350.1.13 .10 ity of [place] 4.2.7.2.686 [place] [facility] [phone] Sd dical [address] 2020-06-02 2020-06-02 Outpatient JANES PARMAR [facility] [id number] Univers 10:00:00 10:00:00 JANES CUEVAS [id number] [facility] 2020-06-02 2020-06-02 Outpatient JANES PARMAR [facility] [id number] Univers 10:00:00 10:00:00 JANES CUEVAS [facility] 2020-06-02 2020-06-02 Orders Doctor ELEANOR 1.2.840.114 [id number] Univers 00:00:00 00:00:00 Only Unassigned, DORITA [id number] ity of [place] [facility] [id number] [place] as [phone] [address] 2020-05-20 2020-05-20 Outpatient JANES PARMAR [facility] [id number] Univers 13:40:00 13:40:00 MASON, JANES [id number] [facility] 2020-05-20 2020-05-20 Outpatient JANES PARMAR [facility] [id number] Univers 13:40:00 13:40:00 MASONJANES [facility] 2020-05-05 2020-05-05 Outpatient JANES PARMAR [facility] [id number] Univers 13:40:00 13:40:00 JANES CUEVAS [id number] [facility] 2020-05-05 2020-05-05 Outpatient R JANES CUEVAS [facility] [id number] Univers 13:40:00 13:40:00 MASONJANES Reynolds [facility] 2020-03-26 2020-03-26 Orders Doctor ELEANOR Lyles2.840.114 [id number] Univers 00:00:00 00:00:00 Only Unassigned, DORITA 350.1.13.10 ity of [place] [facility] 4.2.7.2.686 Jimenez as [phone] [address] 2020-03-26 2020-03-26 Orders Doctor ELEANOR Lyles2.840.114 [id number] 00:00:00 00:00:00 Only Unassigned, DORITA 350.1.13.10 [place] [facility] 4.2.7.2.[phone] [facility] 2020-03-21 2020-03-21 Telephone [facility] 1.2.840.114 [id number] Univers 00:00:00 00:00:00 Veronica SPECIALTY 350.1.13.10 ity of CARE 4.2.7.2.686 [facility] CENTER AT [phone] [address] 2020-03-21 2020-03-21 Telephone [facility] 1.2.840.114 [id number] 00:00:00 00:00:00 Veronica SPECIALTY [id number] CARE [id number] CENTER AT [phone] [address] 2020-03-17 2020-03-17 Office [facility] 1.2.840.114 [id number] Univers 12:25:26 14:08:08 Visit Georgie MULTISPEC 350.1.13.10 ity of IALTY 4.2.7.2.686 [facility] [phone] [facility] AND DEAN [address] [place] [address] [facility] 2020-03-17 2020-03-17 Office [facility] 1.2.840.114 [id number] 12:25:26 14:08:08 Visit Georige MULTISPEC 350.1.13.10 [place] 4.2.7.2.686 [place] [phone] [facility] 2020-03-17 2020-03-17 Outpatient [facility] [id number] Univers 12:30:00 12:30:00 GEORGIE [id number] ity [facility] 2020-03-17 2020-03-17 Outpatient R [facility] [id number] Univers 12:30:00 12:30:00 GEORGIE ity [facility] 2020-03-04 2020-03-04 Orders Doctor WEBSTER 1.2.840.114 [id number] Univers 00:00:00 00:00:00 Only Unassigned, DORITA 350.1.13.10 ity of [place] [facility] 4.2.7.2.686 Jimenez as [phone] [facility] [address] 2020-03-04 2020-03-04 Orders Doctor ELEANOR 1.2.840.114 [id number] 00:00:00 00:00:00 Only Unassigned, DORITA 350.1.13.10 [place] [facility] 4.2.7.2.686 [id number] [id number] 2020-02-19 2020-02-19 Orders Doctor ELEANOR 1.2.840.114 [id number] Univers 00:00:00 00:00:00 Only Unassigned, DORITA 350.1.13.10 ity of [place] [facility] 4.2.7.2.686 [place] as [phone] [place] [address] [address] 2019-07-19 2019-07-19 Outpatient R RADIOLOGY [facility] RAD [id number] Univers 13:10:12 23:59:00 ity of [facility] 2019-07-19 2019-07-19 Hospital Radiology [facility] 1.2.840.114 [id number] Univers 13:10:00 23:59:00 Encounter [place] [id number] ity of [place] 4.2.7.2.686 [facility] [phone] [facility] 807 Branch Results Test Description Test Time Test Comments Results Result [facility] e Comments XR CHEST 2 VW 2019-06-24 HISTORY: History of Un iversity of 7 latent tuberculosis. [facility] 19:27:59 TECHNIQUE: PA and Branch lateral views of the chest are obtained. No prior chestavailable for comparison. FINDINGS: No acute pneumonia detected. No pneumothorax or pleural effusionor pulmonary congestion. Cardiothoracic ratio of approximately 12.6/28.9 cmis consistent with normal cardiac size. Mild degenerative changes noted inthe middle thoracic spine with minimal old fracture deformity in T7. Noaggressive bone lesions detected. Cholecystectomy clip is seen in the rightupper abdomen. CONCLUSIONS: No signs of acute cardiopulmonary disease.[facility], Radiant Results Inft User - 07/19/2019 1:29 PM CSTHISTORY: History of latent tuberculosis.TECHNIQ UE: PA and lateral views of the chest are obtained. No prior chestavailable for comparison.FINDINGS: No acute pneumonia detected. No pneumothorax or pleural effusionor pulmonary congestion. Cardiothoracic ratio of approximately 12.6/28.9 cmis consistent with normal cardiac size. Mild degenerative changes noted inthe middle thoracic spine with minimal old fracture deformity in T7. Noaggressive bone lesions detected. Cholecystectomy clip is seen in the rightupper abdomen.CONCLUSIONS: No signs of acute cardiopulmonary disease.
[2021-09-23] MEDS ORDERED: HYDROCODONE/APAP 10/325 TAB ONE (10:44)
--- NOTE | 2021-09-23 11:44 | RAD REPORT ---
EXAM DESCRIPTION: RAD - Knee Left 3 View - 09/23/2021 10:51 am CLINICAL HISTORY: PAIN COMPARISON: Knee Left 3 View dated 10/13/2020; Knee Left 2 View dated 06/28/2014 FINDINGS: Transverse fracture line is seen through the inferior aspect of the patella. No distractio n along the fracture site. Patella is normally positioned. Spurring is seen at the quadriceps attachm ent to the patella. There is soft tissue swelling anterior to the patella and the patella tendon. Cristine p margin of the patella is somewhat obscured. A patella injury cannot be excluded. Full-thickness pat nikole tear is not suspected given the normal positioning of the patella. On the sunrise view there is no patella tilt or displacement. The femur, tibia and fibula show no acute findings.Minimal joint fluid seen. No joint space narrowing . IMPRESSION: Fracture of the patella with no distraction along the fracture plane and no superior maite ration of the main body of the patella. Margins of the patella tendon are somewhat indistinct on plain film. Partial tear cannot be excluded. Minimal joint effusion.
--- NOTE | 2021-09-23 12:12 | ER ---
Nurse's Notes [facility] Name: Guillermina Bowling Age: 70 yrs Sex: Female : 1950 Arrival Date: 09/23/2021 Time: 09:40 Bed 19 Private MD: Man Hylton E Diagnosis: Fracture of subqduo-nau-kkhzjqwth Presentation: 09/23 09:59 Chief complaint: Patient states: Slipped and fell last night, pain and swelling to left jl7 knee. Coronavirus screen: At this time, the client does not indicate any symptoms associated with coronavirus-19. Ebola Screen: No symptoms or risks identified at this time. Initial Sepsis Screen: Does the patient meet any 2 criteria? No. Patient's initial sepsis screen is negative. Does the patient have a suspected source of infection? No. Patient's initial sepsis screen is negative. Risk Assessment: Do you want to hurt yourself or someone else? Patient reports no desire to harm self or others. Onset of symptoms was September 22, 2021. 09:59 Method Of Arrival: Wheelchair 7 09:59 Acuity: JASWINDRE 4 jl7 Triage Assessment: 10:01 General: Appears in no apparent distress. uncomfortable, Behavior is calm, cooperative, jl7 appropriate for age. Pain: Complains of pain in left knee. Historical: - Allergies: 10:01 No Known Allergies; jl7 - Home Meds: 10:01 B Complex Oral daily [Active]; gabapentin 800 mg oral tab [Active]; Tylenol-Codeine #4 jl7 300-60 mg Oral tab [Active]; lisinopril 20 mg Oral tab 1 tab once daily [Active]; metoprolol tartrate 50 mg Oral tab 1 tab 2 times per day [Active]; Iron CR Oral daily [Active]; Vitamin D Oral daily [Active]; - PMHx: 10:01 Anemia; Crohn's; Fibromyalgia; Hypertension; Myocardial infarction; Rheumatoid jl7 Arthritis; - PSHx: 10:01 colon resection; Cholecystectomy; Total abdominal hysterectomy; jl7 - Immunization history:: Client reports receiving the 2nd dose of the Covid vaccine. - Social history:: Smoking status: Patient denies any tobacco usage or history of. - Family history:: not pertinent. - Hospitalizations: : No recent hospitalization is reported. Screenin:05 Abuse screen: Denies threats or abuse. Denies injuries from another. Nutritional bp screening: No deficits noted. Tuberculosis screening: No symptoms or risk factors identified. Fall Risk None identified. Assessment: 10:05 General: SEE TRIAGE NOTE. bp 11:10 Reassessment: No changes from previously documented assessment. Patient and/or family bp updated on plan of care and expected duration. Pain level reassessed. 12:32 Reassessment: PT D/C HOME WITH FAMILY, DX WITH PATELLAR FX. bp Vital Signs: 09:59 BP 131 / 71; Pulse 72; Resp 17; Temp 97.5; Pulse Ox 99% on R/A; Weight 78.02 kg; Height jl7 5 ft. 4 in. (162.56 cm); Pain 10/10; 11:05 BP 111 / 53; Pulse 68; Resp 16; Pulse Ox 98% ; bp 12:32 BP 109 / 67; Pulse 56; Resp 16; Pulse Ox 96% ; bp 09:59 Body Mass Index 29.52 (78.02 kg, 162.56 cm) jl7 ED Course: 09:40 Patient arrived in ED. am2 09:40 Man Hylton MD is Private Physician. am2 09:51 Rick Diaz MD is Attending Physician. rn 10:01 Triage completed. jl7 10:01 Arm band placed on right wrist. jl7 10:05 Patient has correct armband on for positive identification. Bed in low position. Call bp light in reach. Side rails up X2. 10:25 Scar Moore, RN is Primary Nurse. bp 10:53 XRAY Knee LEFT 3 view In Process Unspecified. EDMS 12:12 Tristian Rocha MD is Referral Physician. rn 12:32 No provider procedures requiring assistance completed. Patient did not have IV access bp during this emergency room visit. 12:32 Crutch training done. Knee immobilizer applied on. bp Administered Medications: 10:40 Drug: Hydrocodone-Acetaminophen (10 mg-500 mg) 1 tabs Route: PO; bp 11:36 Follow up: Response: Pain is decreased bp Outcome: 12:12 Discharge ordered by . rn 12:33 Discharged to home via wheelchair, with family. bp 12:33 Condition: stable 12:33 Discharge instructions given to patient, family, Instructed on discharge instructions, follow up and referral plans. medication usage, crutch walking, Demonstrated understanding of instructions, follow-up care, medications, crutch walking, Prescriptions given X 1. 12:34 Patient left the ED. bp Signatures: Dispatcher [employer] EDMS Rick Diaz MD MD rn Leal, Jahala, RN RN jl7 Earlene Traore Brian RN RN bp
--- NOTE | 2021-09-23 12:12 | EDPHYS ---
Physician Documentation [facility] Name: Guillermina Bowling Age: 70 yrs Sex: Female : 1950 Arrival Date: 09/23/2021 Time: 09:40 Bed 19 Private MD: Man Hylton E ED Physician Rick Diaz HPI: 09/23 12:09 This 70 yrs old Female presents to ER via Wheelchair with complaints of Knee rn Pain - left, Fall Injury. 12:09 Details of fall: The patient fell from an upright position, while walking. Onset: The rn symptoms/episode began/occurred yesterday. Associated injuries: The patient sustained left knee. Severity of symptoms: At their worst the symptoms were moderate, in the emergency department the symptoms are unchanged. The patient has not experienced similar symptoms in the past. The patient has not recently seen a physician. Reports fall yesterday, hit knee, able to ambulate some, worse this AM with increased swelling, no blood thinners. . Historical: - Allergies: 10:01 No Known Allergies; jl7 - Home Meds: 10:01 B Complex Oral daily [Active]; gabapentin 800 mg oral tab [Active]; Tylenol-Codeine #4 jl7 300-60 mg Oral tab [Active]; lisinopril 20 mg Oral tab 1 tab once daily [Active]; metoprolol tartrate 50 mg Oral tab 1 tab 2 times per day [Active]; Iron CR Oral daily [Active]; Vitamin D Oral daily [Active]; - PMHx: 10:01 Anemia; Crohn's; Fibromyalgia; Hypertension; Myocardial infarction; Rheumatoid jl7 Arthritis; - PSHx: 10:01 colon resection; Cholecystectomy; Total abdominal hysterectomy; jl7 - Immunization history:: Client reports receiving the 2nd dose of the Covid vaccine. - Social history:: Smoking status: Patient denies any tobacco usage or history of. - Family history:: not pertinent. - Hospitalizations: : No recent hospitalization is reported. ROS: 12:09 Constitutional: Negative for fever, chills, and weight loss, MS/Extremity: + injury and rn swelling to left knee Skin: Negative for laceration Exam: 12:09 Constitutional: This is a well developed, well nourished patient who is awake, alert, rn and in no acute distress. MS/ Extremity: Pulses equal, no cyanosis. Able to actively flex and extend left lower leg, + mild swelling to left knee with knee effusion. Vital Signs: 09:59 BP 131 / 71; Pulse 72; Resp 17; Temp 97.5; Pulse Ox 99% on R/A; Weight 78.02 kg; Height jl7 5 ft. 4 in. (162.56 cm); Pain 10/10; 11:05 BP 111 / 53; Pulse 68; Resp 16; Pulse Ox 98% ; bp 12:32 BP 109 / 67; Pulse 56; Resp 16; Pulse Ox 96% ; bp 09:59 Body Mass Index 29.52 (78.02 kg, 162.56 cm) jl7 MDM: 09:52 Patient medically screened. rn 12:09 Differential diagnosis: contusion, fracture, sprain, strain. Data reviewed: vital rn signs, nurses notes, radiologic studies, plain films, and as a result, I will discharge patient. Counseling: I had a detailed discussion with the patient and/or guardian regarding: the historical points, exam findings, and any diagnostic results supporting the discharge/admit diagnosis, radiology results, the need for outpatient follow up, to return to the emergency department if symptoms worsen or persist or if there are any questions or concerns that arise at home. Response to treatment: the patient's symptoms have mildly improved after treatment, and as a result, I will discharge patient. Special discussion: I discussed with the patient/guardian in detail that at this point there is no indication for admission to the hospital. It is understood, however, that if the symptoms persist or worsen the patient needs to return immediately for re-evaluation. Based on the history and exam findings, there is no indication for further emergent testing or inpatient evaluation. I discussed with the patient/guardian the need to see the orthopedic surgeon for further evaluation of the symptoms. 09/23 10:02 Order name: XRAY Knee LEFT 3 view; Complete Time: 12:05 rn 09/23 12:05 Order name: Knee Immobilizer; Complete Time: 12:32 rn 09/23 12:09 Order name: Crutches; Complete Time: 12:32 bp Administered Medications: 10:40 Drug: Hydrocodone-Acetaminophen (10 mg-500 mg) 1 tabs Route: PO; bp 11:36 Follow up: Response: Pain is decreased bp Disposition Summary: 09/23/21 12:12 Discharge Ordered Location: Home rn Problem: new rn Symptoms: have improved rn Condition: Stable rn Diagnosis - Fracture of patella - non-displaced(09/23/21 12:12) rn Followup: rn - With: Tristian Rocha MD - When: 5 - 6 days - Reason: Recheck today's complaints, Re-evaluation by your physician Discharge Instructions: - Discharge Summary Sheet rn - Patellar Fracture, Adult rn Forms: - Medication Reconciliation Form rn - Thank You Letter rn - Antibiotic harness maker - Prescription Opioid Use rn Prescriptions: - Tylenol-Codeine #3 300 mg-30 mg Oral - take 1 tablet by ORAL route every 6-8 hours As needed; 12 tablet; Refills: 0, rn Product Selection Permitted Signatures: Dispatcher [employer] EDRick Patton MD MD rn Leal, Jahala, RN RN jl7 Scar Moore RN RN bp Corrections: (The following items were deleted from the chart) 12:12 12:12 Fracture of patella rn rn
[2021-09-23 12:54] VITALS: TEMP 97.5
[2021-09-23 12:56] VITALS: BP 109/67; O2SAT 96
== END 2021-09-23 12:34 | disposition home or self-care (01) ==
LOC: ER 09:39
DX: S82.002A Unspecified fracture of left patella, initial encounter for closed fracture (principal); W18.30XA Fall on same level, unspecified, initial encounter; Y93.01 Activity, walking, marching and hiking; I10 Essential (primary) hypertension; I25.2 Old myocardial infarction
CPT/HCPCS: 99284